=== PATIENT | female | born 1935 | race Two or more races ===

== ENCOUNTER 2017-10-01 10:29 | Observation (INO) | payer OTHER, MEDICARE ==
[~2017-10-01] VITALS: Ht 167.6 cm; Wt 81.6 kg
[~2017-10-01 10:29] MED LIST: ACET325T9 PO; AMLO5TAB2 PO; ASPI325T8 PO; ATOR20TA58 PO; CETI10TA22 PO; CLIN300C8 PO; DEXT15DR2 EACHEYE; DEXT15DR5 EACHEYE; DOCU240C13 PO; DONE10TA7 PO; ERGO500027 PO; FERR-26 PO; GABA-585 PO; GABA-586 PO; GLUC1VIA3 IM; GUAI600T6 PO; GUAI600T79 PO; HYDR-2758 PO; IBUP400T18 PO; INSU100V13 SQ; INSU100V5 SQ; LISI-334 PO; LORA10TA3 PO; MAG30ORA2 PO; MAG355OR32 PO; MAGN2400 PO; MAGN400T22 PO; MELA3TAB2 PO; METF10002 PO; METH29OI TP; MUPI22OI2 TP; OMEP20CA9 PO; PANT40TA3 PO; POLY15DR27 OU; POLY17PO3 PO; POLY255P PO; PROP15DR40 EACHEYE; QUET25TA5 PO; SERT100T8 PO; SERT50TA PO; TRAZ50TA15 PO; [UNRECOGNIZED DRUG - CODE] PO
[2017-10-01 11:10] LABS: BILIRUBIN,URINE NEG (NEG); CLARITY,URINE CLEAR; COLOR,URINE YELLOW; GLUCOSE,URINE 500 mg/dL (NEG)
[2017-10-01 11:11] LABS: BACTERIA,URINE 0 /HPF (0-FEW); NITRITE,URINE NEG (NEG); RBC,URINE 0 /HPF (0-2); SQUAMOUS EPITHELIAL CELL,UR OCC /LPF; UROBILINOGEN,URINE 0.2 mg/dL (0.2 mg/dL)
[2017-10-01 11:13] LABS: BASO % 0 % (0-3); EOS % 0 % (0-3); HEMATOCRIT 41.9 % (36.0-47.0); HEMOGLOBIN 13.6 g/dL (12.0-15.5); LYMPH # 1.3 x10^3/uL (1.0-4.8); LYMPH % 18 % (24-48); MEAN CORPUSCULAR HEMOGLOBIN 27 pg (25-35); MEAN CORPUSCULAR HGB CONC 32 g/dL (31-37); MEAN CORPUSCULAR VOLUME 83 fL (79-100); MONO # 0.5 x10^3/uL (0.0-1.1); MONO % 7 % (0-9); NEUT # 5.5 x10^3uL (1.8-7.7); NEUT % 75 % (31-73); PLATELET COUNT 244 x10^3/uL (140-400); RED BLOOD COUNT 5.04 x10^6/uL (3.50-5.40); WHITE BLOOD COUNT 7.4 x10^3/uL (4.0-11.0)
--- NOTE | 2017-10-01 11:19 | EKG ---
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
[2017-10-01 11:24] LABS: ALBUMIN 3.5 g/dL (3.4-5.0); ALBUMIN/GLOBULIN RATIO 0.9 (1.0-1.7); CALCIUM 8.8 mg/dL (8.5-10.1); CREATININE 1.1 mg/dL (0.6-1.0); GFR 47.8; MAGNESIUM 1.6 mg/dL (1.8-2.4); POTASSIUM 4.4 mmol/L (3.5-5.1); TOTAL BILIRUBIN 0.3 mg/dL (0.2-1.0); TOTAL PROTEIN 7.6 g/dL (6.4-8.2)
--- NOTE | 2017-10-01 11:25 | RAD ---
Head CT without contrast History:worsening aggression, mental status change Technique: Noncontrast CT imaging was acquired of the head. [facility] Compliance Statement: One or more of the following individualized dose reduction techniques were utilized for this examination: 1. Automated exposure control 2. Adjustment of the mA and/or kV according to patient size 3. Use of iterative reconstruction technique Comparison: None Findings: Ventricular size is within normal limits. There is mild supratentorial involutional change not unexpected for the patient's age.There is no significant mass-effect, midline shift, or abnormal extra-axial fluid collection. There is no evidence of acute parenchymal or extraaxial hemorrhage. The visualized paranasal sinuses and mastoid air cells are aerated. No significant osseous abnormality is identified. Impression: There is no evidence of an acute intracranial abnormality.
[2017-10-01] MEDS ORDERED: MAGNESIUM SULFATE 1GM 100 ML IV ONE (12:00)
[2017-10-01] MEDS ORDERED: ONDANSETRON PF 4 MG/2 ML VIAL. IV PRN (12:45)
[2017-10-01] MEDS ORDERED: MORPHINE SULFATE 2 MG/ML DISP.SYRIN. IV PRN (12:45)
[2017-10-01 13:35] VITALS: BP 166/77
[2017-10-01 15:00] VITALS: BP 159/88
[2017-10-01] MEDS ORDERED: MULT1TAB52 PO (15:40)
[2017-10-01] MEDS ORDERED: LORA1TAB PO (15:40)
[2017-10-01] MEDS ORDERED: LANS30CA PO (15:40)
[2017-10-01] MEDS ORDERED: LOPE2CAP PO (15:40)
[2017-10-01] MEDS ORDERED: HYDR-2758 PO (15:40)
[2017-10-01] MEDS ORDERED: TEMA15CA PO (15:40)
[2017-10-01] MEDS ORDERED: ACET500T68 PO (15:40)
[2017-10-01] MEDS ORDERED: OLAN5TAB9 PO (15:40)
[2017-10-01] MEDS ORDERED: CAPS42.510 TP (15:40)
[2017-10-01] MEDS ORDERED: GUAI600T79 PO (15:40)
[2017-10-01] MEDS ORDERED: LORA2DIS2 IM (15:47)
[2017-10-01] MEDS ORDERED: OLAN10TA9 IM (15:47)
--- NOTE | 2017-10-01 15:53 | PHYS DOC ---
Past History Past Medical History: Dementia, Depression, Diabetes, GERD, High Cholesterol, Hypertension, Other Past Surgical History: Coronary Bypass Surgery Alcohol Use: None Drug Use: None Adult General Chief Complaint Chief Complaint: PSYCH EVALUATION HPI HPI This is a pleasant 81-year-old female presenting to the emergency department for medical clearance prior to psychiatric admission. The patient has been more aggressive in the local alf. She is calm and cooperative with us today. She describes a sharp shooting abdominal pain that is mild nonradiating and is worse after eating. Otherwise she denies any symptoms. She denies chest pain shortness of breath fevers or chills. Review of systems is negative for vomiting diarrhea or blood in stool, numbness weakness or tingling. All other review of systems is negative unless otherwise noted in history of present illness. ED course: 81-year-old female presenting to the emergency department today for medical clearance. EKG obtained and unremarkable. Blood work shows low magnesium and high blood sugar. No evidence of acidosis. The remainder of her workup is unremarkable. On examination her abdomen is soft nontender nondistended without rebound tenderness or guarding. I discussed case with Dr. Mendez who accepted the patient for admission along with behavior health consultation. I placed a basic orders along with ordering IV magnesium for the patient. I have assessed this patient clinically and believe that their condition requires an admission to the hospital. After consulting the admitting physician about this case, they have asked that I admit this patient to their service as an inpatient based on the clinical presentation and my impression. Review of Systems Review of Systems SEE ABOVE. Current Medications Current Medications Current Medications Medications (Trade) Dose Ordered Sig/Hugh Start Time Stop Time Status Last Admin Dose Admin Magnesium Sulfate/ Dextrose 100 ml @ 20 mls/hr 1X ONCE 10/01/17 12:00 10/01/17 16:59 10/01/17 12:13 20 MLS/HR Morphine Sulfate (Morphine 2mg Syringe) 2 mg PRN Q2HR PRN 10/01/17 12:45 10/02/17 12:44 Ondansetron HCl (Zofran) 4 mg PRN Q4HRS PRN 10/01/17 12:45 10/02/17 12:44 Sodium Chloride 1,000 ml @ 90 mls/hr Q11H7M 10/01/17 12:43 10/02/17 00:42 Allergies Allergies Allergies Coded Allergies Type Severity Reaction Last Updated Verified hydrochlorothiazide Allergy Intermediate 08/13/15 Yes Physical Exam Physical Exam SEE ABOVE Constitutional: Well developed, well nourished, no acute distress, non-toxic appearance. [] HENT: Normocephalic, atraumatic, bilateral external ears normal, oropharynx moist, no oral exudates, nose normal. [] Eyes: PERRLA, EOMI, conjunctiva normal, no discharge. [] Neck: Normal range of motion, no tenderness, supple, no stridor. [] Cardiovascular:Heart rate regular rhythm, no murmur [] Lungs & Thorax: Bilateral breath sounds clear to auscultation [] Abdomen: Bowel sounds normal, soft, no tenderness, no masses, no pulsatile masses. [] Skin: Warm, dry, no erythema, no rash. [] Back: No tenderness, no CVA tenderness. [] Extremities: No tenderness, no cyanosis, no clubbing, ROM intact, no edema. [] Neurologic: Alert and oriented X 3, normal motor function, normal sensory function, no focal deficits noted. [] Psychologic: Affect normal, judgement normal, mood normal. [] Current Patient Data Vital Signs Vital Signs Date Time Temp Pulse Resp B/P (MAP) Pulse Ox O2 Delivery O2 Flow Rate FiO2 10/01/17 15:00 97.8 95 20 159/88 (111) 95 Room Air Lab Results Laboratory Tests Test 10/01/17 10:49 10/01/17 11:02 Urine Collection Type Void Urine Color Yellow Urine Clarity Clear Urine pH 5.5 Urine Specific [place] <=1.005 Urine Protein 30 mg/dl (NEG-TRACE) Urine Glucose (UA) 500 mg/dL (NEG) Urine Ketones (Stick) Neg mg/dL (NEG) Urine Blood Trace (NEG) Urine Nitrite Neg (NEG) Urine Bilirubin Neg (NEG) Urine Urobilinogen Dipstick 0.2 mg/dL (0.2 mg/dL) Urine Leukocyte Esterase Neg (NEG) Urine RBC 0 /HPF (0-2) Urine WBC 1-4 /HPF (0-4) Urine Squamous Epithelial Cells Occ /LPF Urine Bacteria 0 /HPF (0-FEW) White Blood Count 7.4 x10^3/uL (4.0-11.0) Red Blood Count 5.04 x10^6/uL (3.50-5.40) Hemoglobin 13.6 g/dL (12.0-15.5) Hematocrit 41.9 % (36.0-47.0) Mean Corpuscular Volume 83 fL (79-100) Mean Corpuscular Hemoglobin 27 pg (25-35) Mean Corpuscular Hemoglobin Concent 32 g/dL (31-37) Red Cell Distribution Width 14.0 % (11.5-14.5) Platelet Count 244 x10^3/uL (140-400) Neutrophils (%) (Auto) 75 % (31-73) H Lymphocytes (%) (Auto) 18 % (24-48) L Monocytes (%) (Auto) 7 % (0-9) Eosinophils (%) (Auto) 0 % (0-3) Basophils (%) (Auto) 0 % (0-3) Neutrophils # (Auto) 5.5 x10^3uL (1.8-7.7) Lymphocytes # (Auto) 1.3 x10^3/uL (1.0-4.8) Monocytes # (Auto) 0.5 x10^3/uL (0.0-1.1) Eosinophils # (Auto) 0.0 x10^3/uL (0.0-0.7) Basophils # (Auto) 0.0 x10^3/uL (0.0-0.2) Sodium Level 136 mmol/L (136-145) Potassium Level 4.4 mmol/L (3.5-5.1) Chloride Level 99 mmol/L (98-107) Carbon Dioxide Level 26 mmol/L (21-32) Anion Gap 11 (6-14) Blood Urea Nitrogen 17 mg/dL (7-20) Creatinine 1.1 mg/dL (0.6-1.0) H Estimated GFR (Cockcroft-Gault) 47.8 BUN/Creatinine Ratio 15 (6-20) Glucose Level 468 mg/dL (70-99) H Calcium Level 8.8 mg/dL (8.5-10.1) Magnesium Level 1.6 mg/dL (1.8-2.4) L Total Bilirubin 0.3 mg/dL (0.2-1.0) Aspartate Amino Transferase (AST) 26 U/L (15-37) Alanine Aminotransferase (ALT) 42 U/L (14-59) Alkaline Phosphatase 108 U/L (46-116) Total Protein 7.6 g/dL (6.4-8.2) Albumin 3.5 g/dL (3.4-5.0) Albumin/Globulin Ratio 0.9 (1.0-1.7) L EKG EKG [] Radiology/Procedures Radiology/Procedures [] Course & Med Decision Making Course & Med Decision Making Pertinent Labs and Imaging studies reviewed. (See chart for details) [] Dragon Disclaimer Dragon Disclaimer This electronic medical record was generated, in whole or in part, using a voice recognition dictation system. Departure Departure: Impression: Primary Impression: Hyperglycemia Additional Impression: Hypomagnesemia Disposition: ADMITTED INPATIENT Admitting Physician: Teresa Mendez Condition: STABLE Problem Qualifiers PHIL MORALES MD Oct 01, 2017 15:53
[2017-10-01] MEDS ORDERED: POLYVINYL ALCOHOL 1.4% OPHTH SOLUTION 15ML BOTTLE. OU PRN (16:15)
[2017-10-01] MEDS ORDERED: TEMAZEPAM 15 MG CAPSULE PO PRN (16:15)
[2017-10-01] MEDS ORDERED: ACETAMINOPHEN 500 MG TABLET PO PRN (16:15)
[2017-10-01] MEDS ORDERED: OLANZapine 5 MG TABLET PO PRN (16:15)
[2017-10-01] MEDS ORDERED: HYDROcodone/APAP 5/325MG 1 TAB TABLET PO PRN (16:15)
[2017-10-01] MEDS ORDERED: DEXTROSE 50% 25 GM / 50ML DISP.SYRIN. IV PRN (16:15)
[2017-10-01] MEDS ORDERED: NON FORMULARY ITEM (Propylene Glycol/Peg 400 (Systane 0.3-0.4% Eye Drops) 1 DROP) EACHEYE PRN (16:15)
[2017-10-01] MEDS ORDERED: LORazepam 1 MG TABLET PO PRN (16:15)
[2017-10-01] MEDS ORDERED: MAG HYDROX/AL HYDROX/SIMETH 30 ML ORAL.SUSP PO PRN (16:15)
[2017-10-01] MEDS ORDERED: LOPERAMIDE 2 MG CAPSULE PO PRN (16:15)
[2017-10-01] MEDS ORDERED: LORazepam 2 MG/ML VIAL IM PRN (16:30)
[2017-10-01] MEDS ORDERED: MAGNESIUM HYDROXIDE 2,400 MG/30 ML ORAL.SUSP. PO PRN (16:30)
[2017-10-01] MEDS: IV NORMAL SALINE 1,000ML 1,000 ML IV SCH ×2 (17:12→23:50)
[2017-10-01] MEDS: INSULIN ASPART 300 UNITS/3 ML INSULN.PEN SQ SCH ×2 (17:17→21:41)
[2017-10-01 19:13] VITALS: BP 183/84
[2017-10-01] MEDS ORDERED: INSULIN DETEMIR 300 UNITS/3 ML INSULN.PEN. SQ SCH (21:00)
[2017-10-01] MEDS ORDERED: CAPSAICIN 0.025% TOPICAL CREAM 60GM TUBE. TP PRN (21:00)
[2017-10-01 23:20] VITALS: BP 171/87
[2017-10-01 23:34] VITALS: BP 181/87
[2017-10-02] MEDS: IV NORMAL SALINE 1,000ML 1,000 ML IV SCH (02:46)
[2017-10-02 06:06] LABS: CALCIUM 8.4 mg/dL (8.5-10.1); CREATININE 0.6 mg/dL (0.6-1.0); GFR 96.2; POTASSIUM 4.2 mmol/L (3.5-5.1)
[2017-10-02 06:10] VITALS: BP 143/81
[2017-10-02] MEDS: INSULIN ASPART 300 UNITS/3 ML INSULN.PEN SQ SCH ×2 (08:59→12:21)
[2017-10-02] MEDS ORDERED: MAGNESIUM OXIDE 400 MG TABLET PO SCH (09:00)
[2017-10-02] MEDS ORDERED: ASPIRIN 325 MG TABLET PO SCH (09:00)
[2017-10-02] MEDS ORDERED: PANTOPRAZOLE 40 MG TABLET. PO SCH (09:00)
[2017-10-02] MEDS ORDERED: MULTIVITAMIN with MINERAL TABLET. PO SCH (09:00)
[2017-10-02 10:41] VITALS: BP 112/70
[2017-10-02 10:50] VITALS: BP 176/64
[2017-10-02 15:02] VITALS: BP 165/78
--- NOTE | 2017-10-02 16:44 | SSS ---
ADMIT DATE: 10/02/2017 HISTORY OF PRESENT ILLNESS: The patient is an 81-year-old female patient, a resident at [facility], who apparently was seen in the Emergency Room for medical clearance prior to psychiatric admission. The patient has been more aggressive in the local intermediate. She is calm and cooperative when she arrived to the Emergency Room. She apparently denied any complaint except mild abdominal pain. She was extensively investigated in the Emergency Room and all her lab work were mostly within acceptable range except that her blood sugar was extremely high at 468. She was also found to be mildly hypomagnesemic. I have had a lengthy discussion with the patient through an medical interpreter, lasted for almost 45 minutes and the patient really was very circumstantial, tangential, and was unable to give any particular complaint. I spoke to her daughter and her daughter stated that she has been very delusional, hallucinating, and very paranoid. She picks and choose her medications and all her claims that she has been maltreated in the intermediate ____ allow her to leave the facility. Her daughter states she can and she takes her out without any problem. In any case, she was admitted to [facility] and we basically started her on insulin sliding scale. She was in fact compliant here in the [facility] and we discussed with the intake team and the [facility] the plan is for her to go upstairs for inpatient psychiatric stabilization. PAST MEDICAL HISTORY: Significant for type 2 diabetes mellitus, hyperlipidemia, hypertension, heart failure, gastroesophageal reflux disease, chronic renal disease, coronary artery disease. ALLERGIES: She is apparently allergic to HYDROCHLOROTHIAZIDE. CODE STATUS: DNR. FAMILY HISTORY: Noncontributory. SOCIAL HISTORY: She is a intermediate resident. She does not smoke, drink alcohol, or use any recreational drugs. MEDICATIONS: She is currently on following medications: She is on Tylenol 650 mg every 6 hours, aspirin 325 mg once a day, capsaicin cream to apply topically q. 12 hourly, guaifenesin 600 mg twice a day, hydrocodone/APAP 5/325 one tablet every 6 hours. She is on Levemir insulin 6 units at bedtime, lansoprazole 30 mg capsules once a day, loperamide 2 mg as needed for diarrhea, lorazepam 1 mg every 4 hours, lorazepam 2 mg per 1 mL dispensing syringe intramuscular as needed every 4 hours. She is on Mylanta 30 mL every 4 hours as needed, milk of magnesia 30 mL p.o. daily p.r.n. for constipation. She is on magnesium oxide 400 mg daily, multivitamin 1 tablet once a day, olanzapine ____ mg every 6 hours, polyvinyl alcohol or Artificial Tears 1 drop to both eyes as needed every 12 hours, Systane 1 drop to each eye 4 times a day, temazepam 60 mg at bedtime. PHYSICAL EXAMINATION: GENERAL: On examining her, she looks well and was clearly in no apparent respiratory distress, pale, but no jaundice, cyanosis, or thyromegaly. No jugular venous distension. No limb edema. VITAL SIGNS: Her heart rate was 91, blood pressure was 186/86, temperature was 98, respiratory rate 20, and oxygen saturation was 94%. HEAD, EYES, EARS, NOSE, AND THROAT: Showed normocephalic, atraumatic. NECK: Supple. HEART: Showed normal first and second sound. No gallop, rub, or murmur. CHEST: Clear to auscultation. No crepitation or rhonchi. ABDOMEN: Distended, soft, nontender. No guarding or rigidity. No organomegaly. Hernial orifice intact. Bowel sounds normal. NEUROLOGIC: She was demented, but without any obvious lateralizing sign. All cranial nerves intact. EXTREMITIES: She moves her extremities without difficulty. She ambulates without assistance or assistive devices. LABORATORY DATA: Her white cell count was 7400, hemoglobin 13.6, hematocrit 41.9, MCV 83, and platelet count 244,000. Her serum sodium was 142, potassium 4.2, chloride 107, bicarbonate 29, anion gap of 6, BUN 13, creatinine 0.6, estimated GFR was 96 mL per minute. Her glucose 140, calcium was 8.4, magnesium was 1.7. Urinalysis was essentially unremarkable. The urine was yellow, clear with a pH of 5.5, specific gravity 1.005. There was a trace of protein, large amount of glucose, negative for ketones, trace of blood, negative for nitrites and leukocyte esterase, 0 rbc's, 1-4 wbc's, and no bacteria. She has had a CT scan of the head, which basically showed ventricular size is within normal limits. There is mild supratentorial involutional changes, not unexpected for the patient's age. There is no significant mass effect, midline shift or abnormal extraaxial fluid collection. There is no evidence of acute parenchymal or extraaxial hemorrhage. The visualized paranasal sinuses and mastoid air cells are aerated. No significant osseous abnormalities identified. IMPRESSION: In summary, this is an 81-year-old female patient, a resident at [facility] who was brought to the Emergency Room apparently very aggressive and noncompliant with medication. Her blood sugar was initially found to be high and had low magnesium. She admitted to [facility] for medical stabilization. We will start her on insulin sliding scale. Apparently, the patient has been very delusional, hallucinating, paranoid. She is also markedly circumferential. I spent almost 45 minutes through an medical interpreter to find exactly her complaint and then I spoke to her daughter and all her complaints against intermediate are unsubstantiated. The patient will be transferred to [facility] for inpatient psychiatric stabilization. MAYA HANSON MD DR: HAKEEM/simone JOB#: [id number] / [id number]
[2017-10-02] MEDS ORDERED: SERT25TA PO (17:07)
[2017-10-02] MEDS ORDERED: GABA-586 PO (17:07)
[2017-10-02] MEDS ORDERED: METF10002 PO (17:07)
[2017-10-02] MEDS ORDERED: OMEP20TA8 PO (17:07)
[2017-10-02] MEDS ORDERED: PALI3TAB2 PO (17:07)
[2017-10-02] MEDS ORDERED: DONE10TA61 PO (17:07)
[2017-10-02] MEDS ORDERED: TRAZ50TA15 PO (17:07)
[2017-10-02] MEDS ORDERED: ATOR20TA58 PO (17:07)
[2017-10-02] MEDS ORDERED: AMLO10TA4 PO (17:07)
[2017-10-02] MEDS ORDERED: GLIM2TAB2 PO (17:07)
[2017-10-03 23:08] LABS: HEMOGLOBIN A1C 10.4 % (4.8-5.6)
== END 2017-10-02 16:00 ==
LOC: ER 10:29 → INTOOBSV 12:46 → 1 SOUTH 12:46
PROVIDERS: ADMIT Internal Medicine; ATTEND Internal Medicine
DX: E11.65 Type 2 diabetes mellitus with hyperglycemia (principal); I13.0 Hypertensive heart and chronic kidney disease with heart failure and stage 1 through stage 4 chronic kidney disease, or unspecified chronic kidney disease; E11.22 Type 2 diabetes mellitus with diabetic chronic kidney disease; N18.9 Chronic kidney disease, unspecified; I50.30 Unspecified diastolic (congestive) heart failure; E78.5 Hyperlipidemia, unspecified; K21.9 Gastro-esophageal reflux disease without esophagitis; I25.10 Atherosclerotic heart disease of native coronary artery without angina pectoris
CPT/HCPCS: 36415; 70450; 80048; 80053; 81001; 82947; 83036; 83735; 85025; 87641; 93005; 96361; 96365; 96366; 96372; 99285; G0378; G0379; J1815; J3475; J7030

== ENCOUNTER 2017-10-02 15:49 | Inpatient (IN) | payer OTHER, MEDICARE ==
[~2017-10-02] VITALS: Ht 160 cm; Wt 82.7 kg
[~2017-10-02 15:49] MED LIST changes: +ACET500T68 PO; +CAPS42.510 TP; +LANS30CA PO; +LOPE2CAP PO; +LORA1TAB PO; +LORA2DIS2 IM; +MULT1TAB52 PO; +OLAN10TA9 IM; +OLAN5TAB9 PO; +TEMA15CA PO
[2017-10-02] MEDS ORDERED: OLANZapine 5 MG TABLET PO PRN (16:30)
[2017-10-02] MEDS ORDERED: LORazepam 1 MG TABLET PO PRN (16:30)
[2017-10-02] MEDS ORDERED: HYDROcodone/APAP 5/325MG 1 TAB TABLET PO PRN (16:30)
[2017-10-02] MEDS ORDERED: NON FORMULARY ITEM (Propylene Glycol/Peg 400 (Systane 0.3-0.4% Eye Drops) 1 DROP) EACHEYE PRN (16:30)
[2017-10-02] MEDS ORDERED: POLYVINYL ALCOHOL 1.4% OPHTH SOLUTION 15ML BOTTLE. OU PRN (16:30)
[2017-10-02] MEDS ORDERED: ACETAMINOPHEN 325 MG TABLET PO PRN (16:30)
[2017-10-02] MEDS ORDERED: LOPERAMIDE 2 MG CAPSULE PO PRN (16:30)
[2017-10-02] MEDS ORDERED: TEMAZEPAM 15 MG CAPSULE PO PRN (16:30)
[2017-10-02] MEDS ORDERED: MAG HYDROX/AL HYDROX/SIMETH 30 ML ORAL.SUSP PO PRN ×2 (16:30)
[2017-10-02] MEDS ORDERED: METHYL SALICYLATE/MENTHOL TOPICAL OINTMENT 29GM TUBE. TP PRN (16:30)
[2017-10-02] MEDS ORDERED: MAGNESIUM HYDROXIDE 2,400 MG/30 ML ORAL.SUSP. PO PRN ×2 (16:30→17:00)
[2017-10-02] MEDS ORDERED: ACETAMINOPHEN 500 MG TABLET PO PRN (16:30)
[2017-10-02] MEDS ORDERED: DEXTROSE 50% 25 GM / 50ML DISP.SYRIN. IV PRN (17:00)
[2017-10-02] MEDS ORDERED: NON FORMULARY ITEM (Omeprazole 20 MG) PO PRN (17:00)
[2017-10-02] MEDS ORDERED: DONE10TA61 PO (17:07)
[2017-10-02] MEDS ORDERED: OMEP20TA8 PO (17:07)
[2017-10-02] MEDS ORDERED: GLIM2TAB2 PO (17:07)
[2017-10-02] MEDS ORDERED: METF10002 PO (17:07)
[2017-10-02] MEDS ORDERED: ATOR20TA58 PO (17:07)
[2017-10-02] MEDS ORDERED: SERT25TA PO (17:07)
[2017-10-02] MEDS ORDERED: TRAZ50TA15 PO (17:07)
[2017-10-02] MEDS ORDERED: AMLO10TA4 PO (17:07)
[2017-10-02] MEDS ORDERED: PALI3TAB2 PO (17:07)
[2017-10-02] MEDS ORDERED: GABA-586 PO (17:07)
[2017-10-02 17:12] VITALS: BP 185/75
[2017-10-02] MEDS: DONEPEZIL HCL 10 MG TABLET PO SCH ×2 (19:51→21:00)
[2017-10-02] MEDS: risperiDONE 1 MG TABLET. PO SCH ×2 (19:51→21:00)
[2017-10-02] MEDS: GABAPENTIN 300 MG CAPSULE. PO SCH ×2 (19:51→21:00)
[2017-10-02] MEDS: ATORVASTATIN CALCIUM 20 MG TABLET PO SCH ×2 (19:52→21:00)
[2017-10-02] MEDS: traZODone 50 MG TABLET. PO SCH (19:52)
[2017-10-02] MEDS ORDERED: CAPSAICIN 0.025% TOPICAL CREAM 60GM TUBE. TP PRN (21:00)
[2017-10-02] MEDS ORDERED: INSULIN DETEMIR 300 UNITS/3 ML INSULN.PEN. SQ SCH (21:00)
[2017-10-02] MEDS ORDERED: INSULIN ASPART 300 UNITS/3 ML INSULN.PEN SQ SCH (21:00)
[2017-10-03 00:11] LABS: T3 TOTAL 117 ng/dL (71-180); THYROXINE 5.3 ug/dL (4.5-12.0)
[2017-10-03] MEDS: GABAPENTIN 300 MG CAPSULE. PO SCH ×3 (07:55→21:00)
[2017-10-03] MEDS: risperiDONE 1 MG TABLET. PO SCH ×3 (07:55→21:00)
[2017-10-03] MEDS: amLODIPine BESYLATE 10 MG TABLET PO SCH (07:57)
[2017-10-03] MEDS: GLIMEPIRIDE 2 MG TABLET PO SCH (07:57)
[2017-10-03] MEDS: ASPIRIN 325 MG TABLET PO SCH (07:57)
[2017-10-03] MEDS: MAGNESIUM OXIDE 400 MG TABLET PO SCH (07:59)
[2017-10-03] MEDS: PANTOPRAZOLE 40 MG TABLET. PO SCH (07:59)
[2017-10-03] MEDS: SERTRALINE 25 MG TABLET. PO SCH (07:59)
[2017-10-03] MEDS: MULTIVITAMIN with MINERAL TABLET. PO SCH (07:59)
[2017-10-03] MEDS: INSULIN ASPART 300 UNITS/3 ML INSULN.PEN SQ SCH ×2 (08:06→11:30)
[2017-10-03 10:34] LABS: THYROID STIM HORMONE (TSH) 0.402 uIU/mL (0.358-3.740)
[2017-10-03] MEDS ORDERED: INSULIN ASPART 300 UNITS/3 ML INSULN.PEN SQ ONE (12:30)
[2017-10-03 16:48] VITALS: BP 144/76
[2017-10-03] MEDS: metFORMIN 500 MG TABLET PO SCH (18:12)
[2017-10-03] MEDS: traZODone 50 MG TABLET. PO SCH (20:00)
[2017-10-03] MEDS: DONEPEZIL HCL 10 MG TABLET PO SCH ×2 (20:00→21:00)
[2017-10-03] MEDS: ATORVASTATIN CALCIUM 20 MG TABLET PO SCH ×2 (20:00→21:00)
--- NOTE | 2017-10-03 21:06 | PDOC ---
Exam Note: Anton Note: Please also refer to the separate dictated note~for this date of service dictated separately.~Patient seen individually. Discussed the patient with Nursing staff reviewed the chart.~Reviewed interim history and current functioning. Reviewed vital signs,~Labs/ Radiology~and current medications noted below. Continue current treatment with the changes noted in the dictated addendum note Assessment: Vital Signs: Vital Signs Date Time Temp Pulse Resp B/P (MAP) Pulse Ox O2 Delivery O2 Flow Rate FiO2 10/03/17 16:48 97.5 83 16 144/76 (98) 93 I&O Intake and Output 10/03/17 07:00 Intake Total 600 ml Balance 600 ml Intake Oral 600 ml Labs: Laboratory Tests Test 10/03/17 08:03 10/03/17 11:42 10/03/17 16:39 10/03/17 19:06 Glucose (Fingerstick) 355 mg/dL (70-99) H 444 mg/dL (70-99) H 358 mg/dL (70-99) H 377 mg/dL (70-99) H Current Medications: Meds: Current Medications Acetaminophen (Tylenol) 650 mg PRN Q6HRS PRN PO PAIN / TEMP; Start 10/02/17 at 16:30; Status Cancel Multi-Ingredient Ointment (Analgesic [place]) 1 kiersten PRN QID PRN TP MUSCLE PAIN; Start 10/02/17 at 16:30 Al Hydroxide/Mg Hydroxide (Mylanta Plus Xs) 15 ml PRN AFTMEALHC PRN PO DYSPEPSIA; Start 10/02/17 at 16:30; Status Cancel Magnesium Hydroxide (Milk Of Magnesia) 2,400 mg PRN QHS PRN PO CONSTIPATION; Start 10/02/17 at 16:30; Status Cancel Acetaminophen (Tylenol) 500 mg PRN Q6HRS PRN PO PAIN / TEMP; Start 10/02/17 at 16:30 Aspirin (James Aspirin) 325 mg DAILY PO Last administered on 10/03/17t 07:57; Start 10/03/17 at 09:00 Guaifenesin (Mucinex Er) 600 mg PRN BID PRN PO COUGH; Start 10/02/17 at 16:30 Acetaminophen/ Hydrocodone Bitart (Lortab 5/325) 1 tab PRN Q6HRS PRN PO PAIN Last administered on 10/03/17 07:57; Start 10/02/17 at 16:30 Loperamide HCl (Imodium) 2 mg PRN Q1HR PRN PO DIARRHEA; Start 10/02/17 at 16: 30 Lorazepam (Ativan) 1 mg PRN Q4HRS PRN PO AGITATION; Start 10/02/17 at 16:30 Al Hydroxide/Mg Hydroxide (Mylanta Plus Xs) 20 ml PRN Q4HRS PRN PO DYSPEPSIA; Start 10/02/17 at 16:30 Magnesium Oxide (Magnesium Oxide) 400 mg DAILY PO Last administered on 07:59; Start 10/03/17 at 09:00 Olanzapine (ZyPREXA) 5 mg PRN Q6HRS PRN PO AGITATION; Start 10/02/17 at 16:30 Artificial Tears (Artificial Tears) 1 drop PRN Q12HR PRN OU DRY EYE; Start at 16:30 Temazepam (Restoril) 15 mg PRN QHS PRN PO INSOMNIA; Start 10/02/17 at 16:30 Capsaicin (Zostrix) 1 kiersten PRN Q12HR PRN TP PAIN; Start 10/02/17 at 21:00 Pantoprazole Sodium (Protonix) 40 mg DAILY PO Last administered on 10/03/17 07:59; Start 10/03/17 at 09:00 Magnesium Hydroxide (Milk Of Magnesia) 800 mg PRN QHS PRN PO CONSTIPATION; Start 10/02/17 at 17:00 Multivitamins/ Calcium (Thera-M Plus) 1 tab DAILY PO Last administered on 10/03 07:59; Start 10/03/17 at 09:00 Non-Formulary Medication 1 drop PRN QID PRN EACHEYE DRY EYE; Start 10/02/17 at 16:30; Status UNV Insulin Aspart (NovoLOG) 0-9 UNITS QIDACHS SQ ; Start 10/02/17 at 21:00; Stop 10/03/17 at 00:14; Status DC Dextrose 12.5 gm PRN Q15MIN PRN IV SEE COMMENTS; Start 10/02/17 at 17:00 Amlodipine Besylate (Norvasc) 10 mg DAILY PO Last administered on 10/03/17 07 :57; Start 10/03/17 at 09:00 Atorvastatin Calcium (Lipitor) 20 mg QHS PO Last administered on 10/03/17 20: 00; Start 10/02/17 at 21:00 Donepezil HCl (Aricept) 10 mg QHS PO Last administered on 10/03/17 20:00; Start 10/02/17 at 21:00 Gabapentin (Neurontin) 300 mg BID PO Last administered on 10/03/17 20:00; Start 10/02/17 at 21:00 Glimepiride (Amaryl) 2 mg DAILYWBKFT PO Last administered on 10/03/17 07:57; Start 10/03/17 at 08:00 Sertraline HCl (Zoloft) 75 mg DAILY PO Last administered on 10/03/17 07:59; Start 10/03/17 at 09:00 Trazodone HCl (Desyrel) 25 mg QHS PO Last administered on 10/03/17 20:00; Start 10/02/17 at 21:00 Metformin HCl (Glucophage) 1,000 mg BIDWMEALS PO Last administered on 18:12; Start 10/03/17 at 17:30 Non-Formulary Medication 20 mg DAILY PRN PO GERD; Start 10/02/17 at 17:00; Status UNV Risperidone (RisperDAL) 1 mg BID PO Last administered on 10/03/17 20:00; Start 10/02/17 at 21:00 Insulin Detemir (Levemir) 40 units QHS SQ Last administered on 10/02/17 21:09 ; Start 10/02/17 at 21:00; Stop 10/03/17 at 16:42; Status DC Insulin Aspart (NovoLOG) 0-9 UNITS TIDAC SQ Last administered on 10/03/17 08: 06; Start 10/03/17 at 07:30; Stop 10/03/17 at 17:07; Status DC Insulin Aspart (NovoLOG) 12 units 1X ONCE SQ Last administered on 10/03/17 14:04; Start 10/03/17 at 12:30; Stop 10/03/17 at 12:31; Status DC Insulin Detemir (Levemir) 40 units BID SQ ; Start 10/03/17 at 21:00 Insulin Aspart (NovoLOG) 10 units TIDAC SQ ; Start 10/04/17 at 07:30 Active Scripts Active Reported Trazodone Hcl 50 Mg Tablet 25 Mg PO QHS Invega (Paliperidone) 3 Mg Tab.er.24 3 Mg PO QHS Aricept (Donepezil Hcl) 10 Mg Tablet 10 Mg PO QHS Atorvastatin Calcium 20 Mg Tablet 20 Mg PO QHS Metformin Hcl 1,000 Mg Tablet 1,000 Mg PO BID94 Gabapentin 300 Mg Capsule 300 Mg PO BID Omeprazole 20 Mg Tablet.dr 20 Mg PO DAILY PRN Glimepiride 2 Mg Tablet 2 Mg PO DAILY Norvasc (Amlodipine Besylate) 10 Mg Tablet 10 Mg PO DAILY Zoloft (Sertraline Hcl) 25 Mg Tablet 75 Mg PO DAILY Temazepam 15 Mg Capsule 1 Cap PO QHS PRN Olanzapine 5 Mg Tablet 1 Tab PO PRN Q6HRS PRN Lorazepam 1 Mg Tablet 1 Mg PO PRN Q4HRS PRN Loperamide (Loperamide Hcl) 2 Mg Capsule 2 Mg PO PRN Q1HR PRN Capsaicin 42.5 Gm Cream..g. 1 Kiersten TP PRN Q12HR PRN Hydrocodone-Apap 5-325 (Hydrocodone Bit/Acetaminophen) 1 Each Tablet 1 Tab PO PRN Q6HRS Multivitamins (Multivitamin) 1 Each Tablet 1 Tab PO DAILY Guaifenesin 600 Mg Tablet.er 600 Mg PO PRN BID PRN Lansoprazole 30 Mg Capsule.dr 1 Cap PO DAILY Acetaminophen 500 Mg Tablet 1 Tab PO Q6HRS PRN Mag-Oxide (Magnesium Oxide) 400 Mg Tablet 400 Mg PO DAILY Systane 0.3-0.4% Eye Drops (Propylene Glycol/Peg 400) 15 Ml Drops 1 Drop EACHEYE PRN QID PRN Levemir (Insulin Detemir) 100 Unit/1 Ml Vial 40 Unit SQ HS Artificial Tears (Polyvinyl Alcohol) 15 Ml Drops 1 Drop OU PRN Q12HR PRN Milk Of Magnesia (Magnesium Hydroxide) 2,400 Mg/10 Ml Oral.susp 10 Ml PO PRN QHS PRN Mag-Al Plus Xs Suspension (Mag Hydrox/Al Hydrox/Simeth) 30 Ml Oral.susp 20 Ml PO PRN Q4HRS PRN Aspirin 325 Mg Tablet 325 Mg PO DAILY Give with food. Not to exceed 8 tablets in 24 hours. I have reviewed the current psychotropics carefully including drug interactions. Risk benefit ratio favors no change other than as noted in my dictated progress note. ALEX SINGLETARY MD Oct 03, 2017 21:06
[2017-10-03] MEDS: INSULIN DETEMIR 300 UNITS/3 ML INSULN.PEN. SQ SCH (21:52)
--- NOTE | 2017-10-04 00:47 | PN ---
DATE: 10/02/2017 SUBJECTIVE: The patient is an 81-year-old female patient, a resident at [facility], who apparently was seen in the Emergency Room for medical clearance and apparently, was found to have marked hyperglycemia and also mild hypomagnesemia and was admitted to [address] [place] [address] for stabilization. As she speaks only Green[place]ic, I have used an worm packer and I spent about 45 minutes trying to exactly find what the problem was, and the patient was very circumstantial, tangential, was unable to give me any particular complaint. I spoke to her daughter and who stated that she has been very delusional, hallucinating, and very paranoid. She picks and chews her medication and all her complaints that she has been maltreated at the shelter, are not substantiated according to her daughter. She has been taking her out regularly without any problem and basically, the patient was [facility] for [facility]. PAST MEDICAL HISTORY: Significant for type 2 diabetes mellitus, hyperlipidemia, hypertension, gastroesophageal reflux disease, chronic renal disease, coronary artery disease, and heart failure. ALLERGIES: She is allergic to HYDROCHLOROTHIAZIDE. FAMILY HISTORY: Noncontributory. SOCIAL HISTORY: She is a shelter resident. She does not smoke, drink alcohol or use recreational drugs. MEDICATIONS: She is currently on following medications: She is on Tylenol 500 mg every 6 hours, amlodipine 10 mg once a day, aspirin 325 mg once a day, atorvastatin calcium 20 mg at bedtime, capsaicin cream applied topically twice a day, Aricept 10 mg at bedtime, gabapentin 300 mg p.o. b.i.d., glimepiride 2 mg daily, guaifenesin 600 mg twice a day, hydrocodone/APAP 5/325 one tablet every 6 hours. She is on detemir insulin 40 units at bedtime, lansoprazole 30 mg once a day, loperamide 2 mg every 2 hours as needed for diarrhea, lorazepam 1 mg every 4 hours, Maalox 20 mL every 4 hours as needed, milk of magnesia 30 mL p.o. daily p.r.n. for constipation, mag oxide 400 mg once a day, metformin 1000 mg twice a day, multivitamin 1 tablet once a day, olanzapine 5 mg every 6 hours, omeprazole 20 mg daily, paliperidone 3 mg p.o. at bedtime, polyvinyl alcohol 1 drop to both eyes twice a day, Systane eyedrops 1 drop to each eye 4 times a day, sertraline 75 mg once a day, and temazepam 15 mg at bedtime, and trazodone 25 mg at bedtime. PHYSICAL EXAMINATION: GENERAL: On examining her, she looked well and was clearly in no apparent distress, slightly pale, but no jaundiced, cyanosis, or thyromegaly. No jugular venous distension. No limb edema. VITAL SIGNS: Her heart rate was 79, blood pressure 165/78, temperature was 98, respiratory rate was 20, and oxygen saturation was 91% on room air. The rest of clinical examination is unremarkable. The patient ambulates without assistance or assistive devices. LABORATORY DATA: As of yesterday showed a white cell count of 7400, hemoglobin 13.6, hematocrit 41, MCV 83, and platelet count 244,000. Her chemistry showed serum sodium of 142, potassium 4.2, chloride 107, bicarbonate 29, anion gap of 6, BUN 13, creatinine 0.6, estimated GFR was 96 mL per minute. Her glucose 140, calcium was 8.4. Her magnesium was 1.7. PLAN: My plan is to basically given that she has persistent hyperglycemia. I will double her Levemir to 40 units twice a day. I will start her on a scheduled insulin 3 times a day before meals. I will discontinue the sliding scale and decide further management accordingly. Thank you, Dr. Teran for allowing me to participate in the care of this patient. MAYA HANSON MD DR: HAKEEM/simone JOB#: [id number] / [id number]
[2017-10-04 06:25] VITALS: BP 170/78
[2017-10-04] MEDS: GABAPENTIN 300 MG CAPSULE. PO SCH ×3 (08:24→21:04)
[2017-10-04] MEDS: SERTRALINE 25 MG TABLET. PO SCH (08:24)
[2017-10-04] MEDS: metFORMIN 500 MG TABLET PO SCH ×2 (08:24→17:00)
[2017-10-04] MEDS: GLIMEPIRIDE 2 MG TABLET PO SCH (08:24)
[2017-10-04] MEDS: MAGNESIUM OXIDE 400 MG TABLET PO SCH (08:24)
[2017-10-04] MEDS: ASPIRIN 325 MG TABLET PO SCH (08:24)
[2017-10-04] MEDS: MULTIVITAMIN with MINERAL TABLET. PO SCH (08:24)
[2017-10-04] MEDS: amLODIPine BESYLATE 10 MG TABLET PO SCH (08:24)
[2017-10-04] MEDS: PANTOPRAZOLE 40 MG TABLET. PO SCH (08:24)
[2017-10-04] MEDS: INSULIN ASPART 300 UNITS/3 ML INSULN.PEN SQ SCH ×3 (08:27→16:30)
[2017-10-04] MEDS: INSULIN DETEMIR 300 UNITS/3 ML INSULN.PEN. SQ SCH ×2 (08:28→22:08)
[2017-10-04 08:47] LABS: BASO % 0 % (0-3); EOS # 0.1 x10^3/uL (0.0-0.7); EOS % 1 % (0-3); HEMATOCRIT 41.1 % (36.0-47.0); HEMOGLOBIN 13.4 g/dL (12.0-15.5); LYMPH # 2.1 x10^3/uL (1.0-4.8); LYMPH % 30 % (24-48); MEAN CORPUSCULAR HEMOGLOBIN 27 pg (25-35); MEAN CORPUSCULAR HGB CONC 33 g/dL (31-37); MEAN CORPUSCULAR VOLUME 83 fL (79-100); MONO # 0.6 x10^3/uL (0.0-1.1); MONO % 9 % (0-9); NEUT # 4.2 x10^3uL (1.8-7.7); NEUT % 60 % (31-73); PLATELET COUNT 238 x10^3/uL (140-400); RED BLOOD COUNT 4.95 x10^6/uL (3.50-5.40); RED CELL DISTRIBUTION WIDTH 14.2 % (11.5-14.5); WHITE BLOOD COUNT 7.1 x10^3/uL (4.0-11.0)
[2017-10-04] MEDS ORDERED: risperiDONE ORAL 1 MG/ML 30ml BOTTLE. PO SCH (09:00)
[2017-10-04 09:05] LABS: ALBUMIN 3.4 g/dL (3.4-5.0); ALBUMIN/GLOBULIN RATIO 0.8 (1.0-1.7); CALCIUM 8.9 mg/dL (8.5-10.1); CREATININE 0.9 mg/dL (0.6-1.0); GFR 60.2; POTASSIUM 4.4 mmol/L (3.5-5.1); TOTAL BILIRUBIN 0.4 mg/dL (0.2-1.0); TOTAL PROTEIN 7.5 g/dL (6.4-8.2)
--- NOTE | 2017-10-04 09:45 | HP ---
ADMIT DATE: 10/02/2017 SUBJECTIVE: The patient is an 81-year-old female patient, a resident at [facility], who apparently was seen in the Emergency Room for medical clearance and apparently, was found to have marked hyperglycemia and also mild hypomagnesemia and was admitted to [address] [place] [address] for stabilization. As she speaks only Yi, I have used an tank setter helper and I spent about 45 minutes trying to exactly find what the problem was, and the patient was very circumstantial, tangential, was unable to give me any particular complaint. I spoke to her daughter and who stated that she has been very delusional, hallucinating, and very paranoid. She picks and chews her medication and all her complaints that she has been maltreated at the longterm, are not substantiated according to her daughter. She has been taking her out regularly without any problem and basically, the patient was [facility] stabilization. PAST MEDICAL HISTORY: Significant for type 2 diabetes mellitus, hyperlipidemia, hypertension, gastroesophageal reflux disease, chronic renal disease, coronary artery disease, and heart failure. ALLERGIES: She is allergic to HYDROCHLOROTHIAZIDE. FAMILY HISTORY: Noncontributory. SOCIAL HISTORY: She is a longterm resident. She does not smoke, drink alcohol or use recreational drugs. MEDICATIONS: She is currently on following medications: She is on Tylenol 500 mg every 6 hours, amlodipine 10 mg once a day, aspirin 325 mg once a day, atorvastatin calcium 20 mg at bedtime, capsaicin cream applied topically twice a day, Aricept 10 mg at bedtime, gabapentin 300 mg p.o. b.i.d., glimepiride 2 mg daily, guaifenesin 600 mg twice a day, hydrocodone/APAP 5/325 one tablet every 6 hours. She is on detemir insulin 40 units at bedtime, lansoprazole 30 mg once a day, loperamide 2 mg every 2 hours as needed for diarrhea, lorazepam 1 mg every 4 hours, Maalox 20 mL every 4 hours as needed, milk of magnesia 30 mL p.o. daily p.r.n. for constipation, mag oxide 400 mg once a day, metformin 1000 mg twice a day, multivitamin 1 tablet once a day, olanzapine 5 mg every 6 hours, omeprazole 20 mg daily, paliperidone 3 mg p.o. at bedtime, polyvinyl alcohol 1 drop to both eyes twice a day, Systane eyedrops 1 drop to each eye 4 times a day, sertraline 75 mg once a day, and temazepam 15 mg at bedtime, and trazodone 25 mg at bedtime. PHYSICAL EXAMINATION: GENERAL: On examining her, she looked well and was clearly in no apparent distress, slightly pale, but no jaundiced, cyanosis, or thyromegaly. No jugular venous distension. No limb edema. VITAL SIGNS: Her heart rate was 79, blood pressure 165/78, temperature was 98, respiratory rate was 20, and oxygen saturation was 91% on room air. The rest of clinical examination is unremarkable. The patient ambulates without assistance or assistive devices. LABORATORY DATA: As of yesterday showed a white cell count of 7400, hemoglobin 13.6, hematocrit 41, MCV 83, and platelet count 244,000. Her chemistry showed serum sodium of 142, potassium 4.2, chloride 107, bicarbonate 29, anion gap of 6, BUN 13, creatinine 0.6, estimated GFR was 96 mL per minute. Her glucose 140, calcium was 8.4. Her magnesium was 1.7. PLAN: My plan is to basically given that she has persistent hyperglycemia. I will double her Levemir to 40 units twice a day. I will start her on a scheduled insulin 3 times a day before meals. I will discontinue the sliding scale and decide further management accordingly. Thank you, Dr. Teran for allowing me to participate in the care of this patient. MAYA HANSON MD DR: HAKEEM/simone JOB#: [id number] / [id number]
--- NOTE | 2017-10-04 12:14 | HP ---
ADMIT DATE: 10/03/2017 PSYCHIATRIC ADMISSION HISTORY/EVALUATION Please refer to my initial note for details. This note covers elements not covered in my initial note. IDENTIFYING DATA: The patient is an 81-year-old female, who returns back to us from [address] [place] [address] after she was medically stabilized on account of her hypomagnesemia. She was initially referred from the [facility] on account of increasing tearfulness, agitated, being delusional, hallucinating, rapid circumstantial speech and thought processes, which were also tangential. At the senior living she had been refusing medications for about 2 months, throwing things at people, screaming, crying with increased aggression and combativeness resulting in this referral initially to us for psychiatric stabilization. CHIEF COMPLAINT: "You go ___." The patient was extremely agitated as I met with her evening of 10/03/2017. Rapid speech, speaking only in Samoan, but nursing staff indicate she has been reasonably oriented, psychotic, agitated, anxious, depressed and forgetful. HISTORY OF PRESENT ILLNESS: The patient has history of mild cognitive impairment versus cognitive disorder, unspecified with worsening symptoms of depression, delusions, mood swings. She has had sleep and appetite changes and behaviors at the senior living, have been significantly aberrant, unmanageable. She had mood swings and possible history of bipolar disorder. No active suicidal or homicidal ideation. PAST PSYCHIATRIC HISTORY: As noted above and the patient has been hospitalized here in the past for similar presentation. PAST MEDICAL HISTORY: Hypertension, diabetes mellitus, hypomagnesemia, stabilized. CODE STATUS: DNR. ALLERGIES: HYDROCHLOROTHIAZIDE. Accu-Cheks a.c. and at bedtime. Diet: Regular, ADA, takes her medications whole, ambulates up ad neyda. UA 10/01/2017 was negative. CURRENT PSYCHOTROPICS: Zoloft 75 mg a day, Aricept 10 mg at bedtime, trazodone 25 mg at bedtime, Restoril 15 mg at bedtime p.r.n., Ativan p.r.n., Zyprexa p.r.n. FAMILY HISTORY: Noncontributory. SOCIAL HISTORY: The patient resides at the [facility]. No alcohol or drug abuse, physical, sexual or elder abuse history is noted. Not known to be a perpetrator. MENTAL STATUS EXAMINATION: The patient was seen individually evening of 10/03/2017. She is hyperverbal, extremely rapid in her speech in Samoan, oriented to herself. Insight limited, judgment marginal, language function intact, attention span short. Short term memory is impaired. Her mood is better. She is oriented to place and situation. Insight poor, judgment impaired. No active suicidal or homicidal ideation. REVIEW OF SYSTEMS: No CV, , pulmonary, eye, ENT system symptoms on review. Reliability poor. IMPRESSION: Major depressive disorder, recurrent with psychotic features; anxiety disorder, unspecified; bipolar 1 disorder, mixed with psychotic features. Major neurocognitive disorder, Alzheimer, vascular with depression, delusion versus mild cognitive impairment; impulse control disorder, unspecified. Rest as above. PLAN: Admit to Geropsychiatry Unit at [facility]. Request Dr. Moser/Dr. Mendez to follow the patient medically. I will see the patient daily individually. Continue current psychotropics, increase Zoloft to 100 mg a day. Consider Depakote as a mood stabilizer. Review drug interactions. Risk/benefit ratio favors no further change. MAN Miguel SINGLETARY MD DR: AURA/simone JOB#: [id number] / [id number]
[2017-10-04 16:01] VITALS: BP 135/70
--- NOTE | 2017-10-04 19:56 | PDOC ---
Exam Note: Anton Note: Please also refer to the separate dictated note~for this date of service dictated separately.~Patient seen individually. Discussed the patient with Nursing staff reviewed the chart.~Reviewed interim history and current functioning. Reviewed vital signs,~Labs/ Radiology~and current medications noted below. Continue current treatment with the changes noted in the dictated addendum note Assessment: Vital Signs: Vital Signs Date Time Temp Pulse Resp B/P (MAP) Pulse Ox O2 Delivery O2 Flow Rate FiO2 10/04/17 16:01 97.4 89 20 135/70 (91) 95 I&O Intake and Output 10/04/17 07:00 Intake Total 1440 ml Balance 1440 ml Intake Oral 1440 ml # Bowel Movements 1 Labs: Laboratory Tests Test 10/04/17 07:24 10/04/17 08:30 10/04/17 11:07 10/04/17 16:01 Glucose (Fingerstick) 256 mg/dL (70-99) H 357 mg/dL (70-99) H 240 mg/dL (70-99) H White Blood Count 7.1 x10^3/uL (4.0-11.0) Red Blood Count 4.95 x10^6/uL (3.50-5.40) Hemoglobin 13.4 g/dL (12.0-15.5) Hematocrit 41.1 % (36.0-47.0) Mean Corpuscular Volume 83 fL (79-100) Mean Corpuscular Hemoglobin 27 pg (25-35) Mean Corpuscular Hemoglobin Concent 33 g/dL (31-37) Red Cell Distribution Width 14.2 % (11.5-14.5) Platelet Count 238 x10^3/uL (140-400) Neutrophils (%) (Auto) 60 % (31-73) Lymphocytes (%) (Auto) 30 % (24-48) Monocytes (%) (Auto) 9 % (0-9) Eosinophils (%) (Auto) 1 % (0-3) Basophils (%) (Auto) 0 % (0-3) Neutrophils # (Auto) 4.2 x10^3uL (1.8-7.7) Lymphocytes # (Auto) 2.1 x10^3/uL (1.0-4.8) Monocytes # (Auto) 0.6 x10^3/uL (0.0-1.1) Eosinophils # (Auto) 0.1 x10^3/uL (0.0-0.7) Basophils # (Auto) 0.0 x10^3/uL (0.0-0.2) Sodium Level 138 mmol/L (136-145) Potassium Level 4.4 mmol/L (3.5-5.1) Chloride Level 100 mmol/L (98-107) Carbon Dioxide Level 30 mmol/L (21-32) Anion Gap 8 (6-14) Blood Urea Nitrogen 15 mg/dL (7-20) Creatinine 0.9 mg/dL (0.6-1.0) Estimated GFR (Cockcroft-Gault) 60.2 BUN/Creatinine Ratio 17 (6-20) Glucose Level 347 mg/dL (70-99) H Calcium Level 8.9 mg/dL (8.5-10.1) Total Bilirubin 0.4 mg/dL (0.2-1.0) Aspartate Amino Transferase (AST) 33 U/L (15-37) Alanine Aminotransferase (ALT) 50 U/L (14-59) Alkaline Phosphatase 97 U/L (46-116) Total Protein 7.5 g/dL (6.4-8.2) Albumin 3.4 g/dL (3.4-5.0) Albumin/Globulin Ratio 0.8 (1.0-1.7) L Test 10/04/17 19:42 Glucose (Fingerstick) 222 mg/dL (70-99) H Current Medications: Meds: Current Medications Acetaminophen (Tylenol) 650 mg PRN Q6HRS PRN PO PAIN / TEMP; Start 10/02/17 at 16:30; Status Cancel Multi-Ingredient Ointment (Analgesic [place]) 1 kiersten PRN QID PRN TP MUSCLE PAIN; Start 10/02/17 at 16:30 Al Hydroxide/Mg Hydroxide (Mylanta Plus Xs) 15 ml PRN AFTMEALHC PRN PO DYSPEPSIA; Start 10/02/17 at 16:30; Status Cancel Magnesium Hydroxide (Milk Of Magnesia) 2,400 mg PRN QHS PRN PO CONSTIPATION; Start 10/02/17 at 16:30; Status Cancel Acetaminophen (Tylenol) 500 mg PRN Q6HRS PRN PO PAIN / TEMP; Start 10/02/17 at 16:30 Aspirin (James Aspirin) 325 mg DAILY PO Last administered on 10/04/17 08:24; Start 10/03/17 at 09:00 Guaifenesin (Mucinex Er) 600 mg PRN BID PRN PO COUGH; Start 10/02/17 at 16:30 Acetaminophen/ Hydrocodone Bitart (Lortab 5/325) 1 tab PRN Q6HRS PRN PO PAIN Last administered on 10/03/17 07:57; Start 10/02/17 at 16:30 Loperamide HCl (Imodium) 2 mg PRN Q1HR PRN PO DIARRHEA; Start 10/02/17 at 16: 30 Lorazepam (Ativan) 1 mg PRN Q4HRS PRN PO AGITATION; Start 10/02/17 at 16:30 Al Hydroxide/Mg Hydroxide (Mylanta Plus Xs) 20 ml PRN Q4HRS PRN PO DYSPEPSIA; Start 10/02/17 at 16:30 Magnesium Oxide (Magnesium Oxide) 400 mg DAILY PO Last administered on 08:24; Start 10/03/17 at 09:00 Olanzapine (ZyPREXA) 5 mg PRN Q6HRS PRN PO AGITATION; Start 10/02/17 at 16:30 Artificial Tears (Artificial Tears) 1 drop PRN Q12HR PRN OU DRY EYE; Start at 16:30 Temazepam (Restoril) 15 mg PRN QHS PRN PO INSOMNIA; Start 10/02/17 at 16:30 Capsaicin (Zostrix) 1 kiersten PRN Q12HR PRN TP PAIN; Start 10/02/17 at 21:00 Pantoprazole Sodium (Protonix) 40 mg DAILY PO Last administered on 10/04/17 08:24; Start 10/03/17 at 09:00 Magnesium Hydroxide (Milk Of Magnesia) 800 mg PRN QHS PRN PO CONSTIPATION; Start 10/02/17 at 17:00 Multivitamins/ Calcium (Thera-M Plus) 1 tab DAILY PO Last administered on 10/04 08:24; Start 10/03/17 at 09:00 Non-Formulary Medication 1 drop PRN QID PRN EACHEYE DRY EYE; Start 10/02/17 at 16:30; Status UNV Insulin Aspart (NovoLOG) 0-9 UNITS QIDACHS SQ ; Start 10/02/17 at 21:00; Stop 10/03/17 at 00:14; Status DC Dextrose 12.5 gm PRN Q15MIN PRN IV SEE COMMENTS; Start 10/02/17 at 17:00 Amlodipine Besylate (Norvasc) 10 mg DAILY PO Last administered on 10/04/17 08 :24; Start 10/03/17 at 09:00 Atorvastatin Calcium (Lipitor) 20 mg QHS PO ; Start 10/02/17 at 21:00 Donepezil HCl (Aricept) 10 mg QHS PO ; Start 10/02/17 at 21:00; Stop 10/03/17 at 21:58; Status DC Gabapentin (Neurontin) 300 mg BID PO Last administered on 10/04/17 08:24; Start 10/02/17 at 21:00 Glimepiride (Amaryl) 2 mg DAILYWBKFT PO Last administered on 10/04/17 08:24; Start 10/03/17 at 08:00 Sertraline HCl (Zoloft) 75 mg DAILY PO Last administered on 10/04/17 08:24; Start 10/03/17 at 09:00; Stop 10/04/17 at 13:09; Status DC Trazodone HCl (Desyrel) 25 mg QHS PO Last administered on 10/03/17 20:00; Start 10/02/17 at 21:00 Metformin HCl (Glucophage) 1,000 mg BIDWMEALS PO Last administered on 17:00; Start 10/03/17 at 17:30 Non-Formulary Medication 20 mg DAILY PRN PO GERD; Start 10/02/17 at 17:00; Status UNV Risperidone (RisperDAL) 1 mg BID PO Last administered on 10/03/17 07:55; Start 10/02/17 at 21:00; Stop 10/03/17 at 21:58; Status DC Insulin Detemir (Levemir) 40 units QHS SQ Last administered on 10/02/17 21:09 ; Start 10/02/17 at 21:00; Stop 10/03/17 at 16:42; Status DC Insulin Aspart (NovoLOG) 0-9 UNITS TIDAC SQ Last administered on 10/03/17 08: 06; Start 10/03/17 at 07:30; Stop 10/03/17 at 17:07; Status DC Insulin Aspart (NovoLOG) 12 units 1X ONCE SQ Last administered on 10/03/17 14:04; Start 10/03/17 at 12:30; Stop 10/03/17 at 12:31; Status DC Insulin Detemir (Levemir) 40 units BID SQ Last administered on 10/04/17 08:28 ; Start 10/03/17 at 21:00 Insulin Aspart (NovoLOG) 10 units TIDAC SQ Last administered on 10/04/17 16: 30; Start 10/04/17 at 07:30 Risperidone (RisperDAL) 1 mg BIDAFTMEAL PO Last administered on 10/04/17 08: 25; Start 10/04/17 at 09:00; Stop 10/04/17 at 15:30; Status DC Sertraline HCl (Zoloft) 100 mg DAILY PO ; Start 10/05/17 at 09:00 Risperidone (RisperDAL) 1 mg BID PO ; Start 10/04/17 at 21:00 Active Scripts Active Reported Trazodone Hcl 50 Mg Tablet 25 Mg PO QHS Invega (Paliperidone) 3 Mg Tab.er.24 3 Mg PO QHS Aricept (Donepezil Hcl) 10 Mg Tablet 10 Mg PO QHS Atorvastatin Calcium 20 Mg Tablet 20 Mg PO QHS Metformin Hcl 1,000 Mg Tablet 1,000 Mg PO [id number] Gabapentin 300 Mg Capsule 300 Mg PO BID Omeprazole 20 Mg Tablet.dr 20 Mg PO DAILY PRN Glimepiride 2 Mg Tablet 2 Mg PO DAILY Norvasc (Amlodipine Besylate) 10 Mg Tablet 10 Mg PO DAILY Zoloft (Sertraline Hcl) 25 Mg Tablet 75 Mg PO DAILY Temazepam 15 Mg Capsule 1 Cap PO QHS PRN Olanzapine 5 Mg Tablet 1 Tab PO PRN Q6HRS PRN Lorazepam 1 Mg Tablet 1 Mg PO PRN Q4HRS PRN Loperamide (Loperamide Hcl) 2 Mg Capsule 2 Mg PO PRN Q1HR PRN Capsaicin 42.5 Gm Cream..g. 1 Kiersten TP PRN Q12HR PRN Hydrocodone-Apap 5-325 (Hydrocodone Bit/Acetaminophen) 1 Each Tablet 1 Tab PO PRN Q6HRS Multivitamins (Multivitamin) 1 Each Tablet 1 Tab PO DAILY Guaifenesin 600 Mg Tablet.er 600 Mg PO PRN BID PRN Lansoprazole 30 Mg Capsule.dr 1 Cap PO DAILY Acetaminophen 500 Mg Tablet 1 Tab PO Q6HRS PRN Mag-Oxide (Magnesium Oxide) 400 Mg Tablet 400 Mg PO DAILY Systane 0.3-0.4% Eye Drops (Propylene Glycol/Peg 400) 15 Ml Drops 1 Drop EACHEYE PRN QID PRN Levemir (Insulin Detemir) 100 Unit/1 Ml Vial 40 Unit SQ HS Artificial Tears (Polyvinyl Alcohol) 15 Ml Drops 1 Drop OU PRN Q12HR PRN Milk Of Magnesia (Magnesium Hydroxide) 2,400 Mg/10 Ml Oral.susp 10 Ml PO PRN QHS PRN Mag-Al Plus Xs Suspension (Mag Hydrox/Al Hydrox/Simeth) 30 Ml Oral.susp 20 Ml PO PRN Q4HRS PRN Aspirin 325 Mg Tablet 325 Mg PO DAILY Give with food. Not to exceed 8 tablets in 24 hours. I have reviewed the current psychotropics carefully including drug interactions. Risk benefit ratio favors no change other than as noted in my dictated progress note. Diagnosis: Problems: (1) Behavioral disorder (2) Major depressive disorder with psychotic features (3) Paranoid delusion (4) Poorly controlled diabetes mellitus (5) Type II diabetes mellitus (6) Anxiety disorder (7) Type II diabetes mellitus (8) Impulse control disorder (9) Dementia with behavioral disturbance ALEX SINGLETARY MD Oct 04, 2017 19:56
--- NOTE | 2017-10-04 20:58 | PN ---
DATE: 10/03/2017 This late entry 10/03/2017 covers elements not covered in my initial note of 10/03/2017. SUBJECTIVE: I met with the patient evening of 10/03/2017. The patient was transferred to us from [facility] where she was treated for hypomagnesemia from the ER having been referred initially from [facility] on account of increased tearfulness, agitation, delusions, hallucinations, was refusing medications at the group home, throwing things at people, screaming, crying, aggressive and combative. She had failed outpatient psychiatric interventions. She converses mainly in Turkish. REVIEW OF SYSTEMS: No specific CV, , pulmonary, eye, ENT system symptoms on review that I could decipher. Reliability poor. MENTAL STATUS EXAM: Oriented to herself and situation. Speech coherent, rapid at times. Abstraction fair, computation impaired, language function intact, attention span short. Mood and affect remains labile. IMPRESSION: Major depressive disorder, recurrent, rule out psychotic features. Major neurocognitive disorder, Alzheimer, vascular with depression, delusions versus mild cognitive impairment; anxiety disorder, unspecified; impulse control disorder, unspecified. Rest unchanged from admission. PLAN: Continue Zoloft, but increase it to 100 mg a day, continue Aricept 10 mg a day, trazodone 25 mg at bedtime, Restoril 15 mg at bedtime p.r.n., Ativan p.r.n., Zyprexa p.r.n. Consider Depakote as a mood stabilizer if mood vacillations persist. ALEX SINGLETARY MD DR: AURA/simone JOB#: [id number] / [id number]
[2017-10-04] MEDS: traZODone 50 MG TABLET. PO SCH ×2 (21:00→21:04)
[2017-10-04] MEDS: ATORVASTATIN CALCIUM 20 MG TABLET PO SCH ×2 (21:00→21:04)
[2017-10-04] MEDS: risperiDONE ORAL 1 MG/ML 30ml BOTTLE. PO SCH (21:07)
[2017-10-05 00:07] LABS: HEMOGLOBIN A1C 10.6 % (4.8-5.6)
[2017-10-05 06:10] VITALS: BP 156/79
[2017-10-05] MEDS: amLODIPine BESYLATE 10 MG TABLET PO SCH ×2 (07:56→09:00)
[2017-10-05] MEDS: GLIMEPIRIDE 2 MG TABLET PO SCH ×2 (07:56→11:42)
[2017-10-05] MEDS: MAGNESIUM OXIDE 400 MG TABLET PO SCH (07:56)
[2017-10-05] MEDS: ASPIRIN 325 MG TABLET PO SCH (07:56)
[2017-10-05] MEDS: metFORMIN 500 MG TABLET PO SCH ×4 (07:56→17:42)
[2017-10-05] MEDS: GABAPENTIN 300 MG CAPSULE. PO SCH ×3 (07:57→19:44)
[2017-10-05] MEDS: PANTOPRAZOLE 40 MG TABLET. PO SCH ×2 (07:57→09:00)
[2017-10-05] MEDS: MULTIVITAMIN with MINERAL TABLET. PO SCH (07:57)
[2017-10-05] MEDS: INSULIN ASPART 300 UNITS/3 ML INSULN.PEN SQ SCH ×3 (07:59→17:44)
[2017-10-05] MEDS: INSULIN DETEMIR 300 UNITS/3 ML INSULN.PEN. SQ SCH ×2 (08:01→19:47)
[2017-10-05] MEDS: risperiDONE ORAL 1 MG/ML 30ml BOTTLE. PO SCH ×2 (08:04→19:45)
[2017-10-05] MEDS: SERTRALINE 100 MG TABLET. PO SCH ×2 (08:04→11:42)
[2017-10-05 15:53] VITALS: BP 175/69
[2017-10-05] MEDS: traZODone 50 MG TABLET. PO SCH (19:44)
[2017-10-05] MEDS: ATORVASTATIN CALCIUM 20 MG TABLET PO SCH (19:44)
--- NOTE | 2017-10-05 20:08 | PDOC ---
Exam Note: Anton Note: Please also refer to the separate dictated note~for this date of service dictated separately.~Patient seen individually. Discussed the patient with Nursing staff reviewed the chart.~Reviewed interim history and current functioning. Reviewed vital signs,~Labs/ Radiology~and current medications noted below. Continue current treatment with the changes noted in the dictated addendum note Assessment: Vital Signs: Vital Signs Date Time Temp Pulse Resp B/P (MAP) Pulse Ox O2 Delivery O2 Flow Rate FiO2 10/05/17 15:53 98.4 83 18 175/69 (104) 94 I&O Intake and Output 10/05/17 07:00 Intake Total 1080 ml Balance 1080 ml Intake Oral 1080 ml # Voids 1 Labs: Laboratory Tests Test 10/05/17 07:42 10/05/17 11:46 10/05/17 16:53 10/05/17 19:04 Glucose (Fingerstick) 208 mg/dL (70-99) H 268 mg/dL (70-99) H 142 mg/dL (70-99) H 237 mg/dL (70-99) H Current Medications: Meds: Current Medications Acetaminophen (Tylenol) 650 mg PRN Q6HRS PRN PO PAIN / TEMP; Start 10/02/17 at 16:30; Status Cancel Multi-Ingredient Ointment (Analgesic Healy) 1 kiersten PRN QID PRN TP MUSCLE PAIN; Start 10/02/17 at 16:30 Al Hydroxide/Mg Hydroxide (Mylanta Plus Xs) 15 ml PRN AFTMEALHC PRN PO DYSPEPSIA; Start 10/02/17 at 16:30; Status Cancel Magnesium Hydroxide (Milk Of Magnesia) 2,400 mg PRN QHS PRN PO CONSTIPATION; Start 10/02/17 at 16:30; Status Cancel Acetaminophen (Tylenol) 500 mg PRN Q6HRS PRN PO PAIN / TEMP; Start 10/02/17 at 16:30 Aspirin (James Aspirin) 325 mg DAILY PO Last administered on 10/05/17t 07:56; Start 10/03/17 at 09:00 Guaifenesin (Mucinex Er) 600 mg PRN BID PRN PO COUGH; Start 10/02/17 at 16:30 Acetaminophen/ Hydrocodone Bitart (Lortab 5/325) 1 tab PRN Q6HRS PRN PO PAIN Last administered on 10/03/17 07:57; Start 10/02/17 at 16:30 Loperamide HCl (Imodium) 2 mg PRN Q1HR PRN PO DIARRHEA; Start 10/02/17 at 16: 30 Lorazepam (Ativan) 1 mg PRN Q4HRS PRN PO AGITATION; Start 10/02/17 at 16:30 Al Hydroxide/Mg Hydroxide (Mylanta Plus Xs) 20 ml PRN Q4HRS PRN PO DYSPEPSIA; Start 10/02/17 at 16:30 Magnesium Oxide (Magnesium Oxide) 400 mg DAILY PO Last administered on 07:56; Start 10/03/17 at 09:00 Olanzapine (ZyPREXA) 5 mg PRN Q6HRS PRN PO AGITATION; Start 10/02/17 at 16:30 Artificial Tears (Artificial Tears) 1 drop PRN Q12HR PRN OU DRY EYE; Start at 16:30 Temazepam (Restoril) 15 mg PRN QHS PRN PO INSOMNIA; Start 10/02/17 at 16:30 Capsaicin (Zostrix) 1 kiersten PRN Q12HR PRN TP PAIN; Start 10/02/17 at 21:00 Pantoprazole Sodium (Protonix) 40 mg DAILY PO Last administered on 10/04/17 08:24; Start 10/03/17 at 09:00 Magnesium Hydroxide (Milk Of Magnesia) 800 mg PRN QHS PRN PO CONSTIPATION; Start 10/02/17 at 17:00 Multivitamins/ Calcium (Thera-M Plus) 1 tab DAILY PO Last administered on 10/05 07:57; Start 10/03/17 at 09:00 Non-Formulary Medication 1 drop PRN QID PRN EACHEYE DRY EYE; Start 10/02/17 at 16:30; Status UNV Insulin Aspart (NovoLOG) 0-9 UNITS QIDACHS SQ ; Start 10/02/17 at 21:00; Stop 10/03/17 at 00:14; Status DC Dextrose 12.5 gm PRN Q15MIN PRN IV SEE COMMENTS; Start 10/02/17 at 17:00 Amlodipine Besylate (Norvasc) 10 mg DAILY PO Last administered on 10/04/17 08 :24; Start 10/03/17 at 09:00 Atorvastatin Calcium (Lipitor) 20 mg QHS PO Last administered on 10/05/17 19: 44; Start 10/02/17 at 21:00 Donepezil HCl (Aricept) 10 mg QHS PO ; Start 10/02/17 at 21:00; Stop 10/03/17 at 21:58; Status DC Gabapentin (Neurontin) 300 mg BID PO Last administered on 10/05/17 19:44; Start 10/02/17 at 21:00 Glimepiride (Amaryl) 2 mg DAILYWBKFT PO Last administered on 10/05/17 11:42; Start 10/03/17 at 08:00 Sertraline HCl (Zoloft) 75 mg DAILY PO Last administered on 10/04/17 08:24; Start 10/03/17 at 09:00; Stop 10/04/17 at 13:09; Status DC Trazodone HCl (Desyrel) 25 mg QHS PO Last administered on 10/05/17 19:44; Start 10/02/17 at 21:00 Metformin HCl (Glucophage) 1,000 mg BIDWMEALS PO Last administered on 17:00; Start 10/03/17 at 17:30 Non-Formulary Medication 20 mg DAILY PRN PO GERD; Start 10/02/17 at 17:00; Status UNV Risperidone (RisperDAL) 1 mg BID PO Last administered on 10/03/17 07:55; Start 10/02/17 at 21:00; Stop 10/03/17 at 21:58; Status DC Insulin Detemir (Levemir) 40 units QHS SQ Last administered on 10/02/17 21:09 ; Start 10/02/17 at 21:00; Stop 10/03/17 at 16:42; Status DC Insulin Aspart (NovoLOG) 0-9 UNITS TIDAC SQ Last administered on 10/03/17 08: 06; Start 10/03/17 at 07:30; Stop 10/03/17 at 17:07; Status DC Insulin Aspart (NovoLOG) 12 units 1X ONCE SQ Last administered on 10/03/17 14:04; Start 10/03/17 at 12:30; Stop 10/03/17 at 12:31; Status DC Insulin Detemir (Levemir) 40 units BID SQ Last administered on 10/05/17 19:47 ; Start 10/03/17 at 21:00 Insulin Aspart (NovoLOG) 10 units TIDAC SQ Last administered on 10/05/17 17: 44; Start 10/04/17 at 07:30 Risperidone (RisperDAL) 1 mg BIDAFTMEAL PO Last administered on 10/04/17 08: 25; Start 10/04/17 at 09:00; Stop 10/04/17 at 15:30; Status DC Sertraline HCl (Zoloft) 100 mg DAILY PO Last administered on 10/05/17 11:42; Start 10/05/17 at 09:00 Risperidone (RisperDAL) 1 mg BID PO Last administered on 10/05/17 19:45; Start 10/04/17 at 21:00 Active Scripts Active Reported Trazodone Hcl 50 Mg Tablet 25 Mg PO QHS Invega (Paliperidone) 3 Mg Tab.er.24 3 Mg PO QHS Aricept (Donepezil Hcl) 10 Mg Tablet 10 Mg PO QHS Atorvastatin Calcium 20 Mg Tablet 20 Mg PO QHS Metformin Hcl 1,000 Mg Tablet 1,000 Mg PO BID94 Gabapentin 300 Mg Capsule 300 Mg PO BID Omeprazole 20 Mg Tablet.dr 20 Mg PO DAILY PRN Glimepiride 2 Mg Tablet 2 Mg PO DAILY Norvasc (Amlodipine Besylate) 10 Mg Tablet 10 Mg PO DAILY Zoloft (Sertraline Hcl) 25 Mg Tablet 75 Mg PO DAILY Temazepam 15 Mg Capsule 1 Cap PO QHS PRN Olanzapine 5 Mg Tablet 1 Tab PO PRN Q6HRS PRN Lorazepam 1 Mg Tablet 1 Mg PO PRN Q4HRS PRN Loperamide (Loperamide Hcl) 2 Mg Capsule 2 Mg PO PRN Q1HR PRN Capsaicin 42.5 Gm Cream..g. 1 Kiersten TP PRN Q12HR PRN Hydrocodone-Apap 5-325 (Hydrocodone Bit/Acetaminophen) 1 Each Tablet 1 Tab PO PRN Q6HRS Multivitamins (Multivitamin) 1 Each Tablet 1 Tab PO DAILY Guaifenesin 600 Mg Tablet.er 600 Mg PO PRN BID PRN Lansoprazole 30 Mg Capsule.dr 1 Cap PO DAILY Acetaminophen 500 Mg Tablet 1 Tab PO Q6HRS PRN Mag-Oxide (Magnesium Oxide) 400 Mg Tablet 400 Mg PO DAILY Systane 0.3-0.4% Eye Drops (Propylene Glycol/Peg 400) 15 Ml Drops 1 Drop EACHEYE PRN QID PRN Levemir (Insulin Detemir) 100 Unit/1 Ml Vial 40 Unit SQ HS Artificial Tears (Polyvinyl Alcohol) 15 Ml Drops 1 Drop OU PRN Q12HR PRN Milk Of Magnesia (Magnesium Hydroxide) 2,400 Mg/10 Ml Oral.susp 10 Ml PO PRN QHS PRN Mag-Al Plus Xs Suspension (Mag Hydrox/Al Hydrox/Simeth) 30 Ml Oral.susp 20 Ml PO PRN Q4HRS PRN Aspirin 325 Mg Tablet 325 Mg PO DAILY Give with food. Not to exceed 8 tablets in 24 hours. I have reviewed the current psychotropics carefully including drug interactions. Risk benefit ratio favors no change other than as noted in my dictated progress note. Diagnosis: Problems: (1) Behavioral disorder (2) Major depressive disorder with psychotic features (3) Paranoid delusion (4) Poorly controlled diabetes mellitus (5) Type II diabetes mellitus (6) Anxiety disorder (7) Type II diabetes mellitus (8) Impulse control disorder (9) Dementia with behavioral disturbance ALEX SINGLETARY MD Oct 05, 2017 20:08
[2017-10-05] MEDS ORDERED: INSU100I17 SQ (22:53)
[2017-10-05] MEDS ORDERED: METH29OI TP (22:58)
[2017-10-05] MEDS ORDERED: PANT40TA5 PO (23:01)
[2017-10-05] MEDS ORDERED: PALI3TAB2 PO (23:02)
[2017-10-05] MEDS ORDERED: RISP1TAB43 PO (23:05)
--- NOTE | 2017-10-06 03:49 | PN ---
DATE: 10/04/2017 This late entry for 10/04/2017 covers elements not covered in my initial note of 10/04/2017. SUBJECTIVE: I met with the patient at great length in the evening of 10/04/2017 through an hand mexican food maker who was extremely helpful in communicating with the patient. The hand mexican food maker was on the telephone. The patient was communicating with the hand mexican food maker in Hungarian. The patient described at length how she feels her daughter had her sign the DPOA papers which she believes she was signing just for a DNR status. She believes her other daughter, Magalys is more supportive of the patient and wants her to be more involved in the patient's care. The patient prefers to go live in an apartment close to Magalys in [place], [place]. All this information will be passed on to the social service staff, and at the time of this dictation, I have discussed all this with the social service staff as well. The patient left the telephone number for Magalys as [phone]. I did ask for some orientation questions. She was unable to do serial sevens, was unsure of the date, though she knew it was 2016, knew she had been here since the . In fact, she was admitted on the . She has been refusing some of her psychotropics, has vague somatic symptoms. REVIEW OF SYSTEMS: No CV, , pulmonary, eye system symptoms on review. MENTAL STATUS EXAM: Oriented to herself and situation. Speech coherent, rapid at times. Abstraction fair, computation impaired, language function intact. Attention span short. Information from social service staff revealed how repeatedly she appeared psychotic at the long term, believes police were trying to find her, if she saw a car outside would get quite erratic, labile. senior living had arranged interpreters to help with communication with some relief. Takes her meds hidden in juice. Blood sugar was somewhat elevated. No active suicidal or homicidal ideation. Attention span short. Language function intact. Mood and affect somewhat anxious, labile. LABORATORY DATA: Reviewed. IMPRESSION: Major depressive disorder versus mood disorder, unspecified; cognitive disorder, unspecified versus major neurocognitive disorder, Alzheimer, vascular with depression, delusions, impulse control disorder, unspecified. Rest unchanged. PLAN: Continue current psychotropics mentioned in my initial note. Further disposition plans have been discussed with Latanya, social service staff. ALEX SINGLETARY MD DR: AURA/simone JOB#: [id number] / [id number]
[2017-10-06 06:13] VITALS: BP 153/73
[2017-10-06] MEDS: GLIMEPIRIDE 2 MG TABLET PO SCH ×2 (08:00→09:39)
[2017-10-06] MEDS: metFORMIN 500 MG TABLET PO SCH ×2 (08:00→09:38)
[2017-10-06] MEDS: SERTRALINE 100 MG TABLET. PO SCH ×2 (09:00→09:38)
[2017-10-06] MEDS: risperiDONE ORAL 1 MG/ML 30ml BOTTLE. PO SCH (09:00)
[2017-10-06] MEDS: GABAPENTIN 300 MG CAPSULE. PO SCH (09:00)
[2017-10-06] MEDS: amLODIPine BESYLATE 10 MG TABLET PO SCH ×2 (09:00→09:38)
[2017-10-06] MEDS: MULTIVITAMIN with MINERAL TABLET. PO SCH (09:00)
[2017-10-06] MEDS: PANTOPRAZOLE 40 MG TABLET. PO SCH (09:00)
[2017-10-06] MEDS: INSULIN ASPART 300 UNITS/3 ML INSULN.PEN SQ SCH (09:36)
[2017-10-06] MEDS: INSULIN DETEMIR 300 UNITS/3 ML INSULN.PEN. SQ SCH (09:37)
[2017-10-06] MEDS: MAGNESIUM OXIDE 400 MG TABLET PO SCH (09:39)
[2017-10-06] MEDS: ASPIRIN 325 MG TABLET PO SCH (09:39)
--- NOTE | 2017-10-07 05:05 | PN ---
DATE: 10/05/2017 This late entry, date of service, 10/05/2017 covers elements not covered in my initial note 10/05/2017. I met with the patient in the evening of 10/05/2017. The patient is noncompliant with medications, takes some things selectively, took Risperdal with apple juice and intermittently takes the aspirin, magnesium, multivitamin. REVIEW OF SYSTEMS: No CV, , pulmonary, eye system symptoms on review. Reliability poor. MENTAL STATUS EXAM: Oriented to herself and situation. Speech coherent, rapid preferentially in Kyrgyz. Abstraction fair, computation impaired, language function intact, attention span short. Mood and affect still somewhat anxious, but less labile. LABORATORY DATA: Reviewed. IMPRESSION: Unchanged from initial note and she is less demented than she initially appeared on the surface; major depressive disorder, recurrent; anxiety disorder, unspecified; mood disorder, unspecified; mild cognitive impairment versus major neurocognitive disorder; early Alzheimer, vascular with delusion; depression. PLAN: Continue current psychotropics as mentioned in my initial note, encourage compliance. Discussed with social service staff. [facility] in the next day or two. MAN Miguel SINGLETARY MD DR: AURA/simone JOB#: [id number] / [id number]
--- NOTE | 2017-10-07 18:36 | PDOC ---
Exam Note: Anton Note: Please also refer to the separate dictated note~for this date of service dictated separately.~Patient seen individually. Discussed the patient with Nursing staff reviewed the chart.~Reviewed interim history and current functioning. Reviewed vital signs,~Labs/ Radiology~and current medications noted below. Continue current treatment with the changes noted in the dictated addendum note Assessment: Vital Signs: Vital Signs Date Time Temp Pulse Resp B/P (MAP) Pulse Ox O2 Delivery O2 Flow Rate FiO2 10/06/17 06:13 97.2 87 18 153/73 (99) 95 I&O Intake and Output 10/07/17 07:00 Intake Total 240 ml Balance 240 ml Intake Oral 240 ml Current Medications: Meds: Current Medications Acetaminophen (Tylenol) 650 mg PRN Q6HRS PRN PO PAIN / TEMP; Start 10/02/17 at 16:30; Status Cancel Multi-Ingredient Ointment (Analgesic Rydal) 1 kiersten PRN QID PRN TP MUSCLE PAIN; Start 10/02/17 at 16:30; Stop 10/06/17 at 11:13; Status DC Al Hydroxide/Mg Hydroxide (Mylanta Plus Xs) 15 ml PRN AFTMEALHC PRN PO DYSPEPSIA; Start 10/02/17 at 16:30; Status Cancel Magnesium Hydroxide (Milk Of Magnesia) 2,400 mg PRN QHS PRN PO CONSTIPATION; Start 10/02/17 at 16:30; Status Cancel Acetaminophen (Tylenol) 500 mg PRN Q6HRS PRN PO PAIN / TEMP; Start 10/02/17 at 16:30; Stop 10/06/17 at 11:13; Status DC Aspirin (James Aspirin) 325 mg DAILY PO Last administered on 10/06/17 09:39; Start 10/03/17 at 09:00; Stop 10/06/17 at 11:13; Status DC Guaifenesin (Mucinex Er) 600 mg PRN BID PRN PO COUGH; Start 10/02/17 at 16:30 ; Stop 10/06/17 at 11:13; Status DC Acetaminophen/ Hydrocodone Bitart (Lortab 5/325) 1 tab PRN Q6HRS PRN PO PAIN Last administered on 10/03/17 07:57; Start 10/02/17 at 16:30; Stop 10/06/17 at 11:13; Status DC Loperamide HCl (Imodium) 2 mg PRN Q1HR PRN PO DIARRHEA; Start 10/02/17 at 16: 30; Stop 10/06/17 at 11:13; Status DC Lorazepam (Ativan) 1 mg PRN Q4HRS PRN PO AGITATION; Start 10/02/17 at 16:30; Stop 10/06/17 at 11:13; Status DC Al Hydroxide/Mg Hydroxide (Mylanta Plus Xs) 20 ml PRN Q4HRS PRN PO DYSPEPSIA; Start 10/02/17 at 16:30; Stop 10/06/17 at 11:13; Status DC Magnesium Oxide (Magnesium Oxide) 400 mg DAILY PO Last administered on 09:39; Start 10/03/17 at 09:00; Stop 10/06/17 at 11:13; Status DC Olanzapine (ZyPREXA) 5 mg PRN Q6HRS PRN PO AGITATION; Start 10/02/17 at 16:30 ; Stop 10/06/17 at 11:13; Status DC Artificial Tears (Artificial Tears) 1 drop PRN Q12HR PRN OU DRY EYE; Start at 16:30; Stop 10/06/17 at 11:13; Status DC Temazepam (Restoril) 15 mg PRN QHS PRN PO INSOMNIA; Start 10/02/17 at 16:30; Stop 10/06/17 at 11:13; Status DC Capsaicin (Zostrix) 1 kiersten PRN Q12HR PRN TP PAIN; Start 10/02/17 at 21:00; Stop 10/06/17 at 11:13; Status DC Pantoprazole Sodium (Protonix) 40 mg DAILY PO Last administered on 10/04/17 08:24; Start 10/03/17 at 09:00; Stop 10/06/17 at 11:13; Status DC Magnesium Hydroxide (Milk Of Magnesia) 800 mg PRN QHS PRN PO CONSTIPATION; Start 10/02/17 at 17:00; Stop 10/06/17 at 11:13; Status DC Multivitamins/ Calcium (Thera-M Plus) 1 tab DAILY PO Last administered on 10/05 07:57; Start 10/03/17 at 09:00; Stop 10/06/17 at 11:13; Status DC Non-Formulary Medication 1 drop PRN QID PRN EACHEYE DRY EYE; Start 10/02/17 at 16:30; Status UNV Insulin Aspart (NovoLOG) 0-9 UNITS QIDACHS SQ ; Start 10/02/17 at 21:00; Stop 10/03/17 at 00:14; Status DC Dextrose 12.5 gm PRN Q15MIN PRN IV SEE COMMENTS; Start 10/02/17 at 17:00; Stop 10/06/17 at 11:13; Status DC Amlodipine Besylate (Norvasc) 10 mg DAILY PO Last administered on 10/04/17 08 :24; Start 10/03/17 at 09:00; Stop 10/06/17 at 11:13; Status DC Atorvastatin Calcium (Lipitor) 20 mg QHS PO Last administered on 10/05/17 19: 44; Start 10/02/17 at 21:00; Stop 10/06/17 at 11:13; Status DC Donepezil HCl (Aricept) 10 mg QHS PO ; Start 10/02/17 at 21:00; Stop 10/03/17 at 21:58; Status DC Gabapentin (Neurontin) 300 mg BID PO Last administered on 10/05/17 19:44; Start 10/02/17 at 21:00; Stop 10/06/17 at 11:13; Status DC Glimepiride (Amaryl) 2 mg DAILYWBKFT PO Last administered on 10/05/17 11:42; Start 10/03/17 at 08:00; Stop 10/06/17 at 11:13; Status DC Sertraline HCl (Zoloft) 75 mg DAILY PO Last administered on 10/04/17 08:24; Start 10/03/17 at 09:00; Stop 10/04/17 at 13:09; Status DC Trazodone HCl (Desyrel) 25 mg QHS PO Last administered on 10/05/17 19:44; Start 10/02/17 at 21:00; Stop 10/06/17 at 11:13; Status DC Metformin HCl (Glucophage) 1,000 mg BIDWMEALS PO Last administered on 17:00; Start 10/03/17 at 17:30; Stop 10/06/17 at 11:13; Status DC Non-Formulary Medication 20 mg DAILY PRN PO GERD; Start 10/02/17 at 17:00; Status UNV Risperidone (RisperDAL) 1 mg BID PO Last administered on 10/03/17 07:55; Start 10/02/17 at 21:00; Stop 10/03/17 at 21:58; Status DC Insulin Detemir (Levemir) 40 units QHS SQ Last administered on 10/02/17 21:09 ; Start 10/02/17 at 21:00; Stop 10/03/17 at 16:42; Status DC Insulin Aspart (NovoLOG) 0-9 UNITS TIDAC SQ Last administered on 10/03/17 08: 06; Start 10/03/17 at 07:30; Stop 10/03/17 at 17:07; Status DC Insulin Aspart (NovoLOG) 12 units 1X ONCE SQ Last administered on 10/03/17 14:04; Start 10/03/17 at 12:30; Stop 10/03/17 at 12:31; Status DC Insulin Detemir (Levemir) 40 units BID SQ Last administered on 10/06/17 09:37 ; Start 10/03/17 at 21:00; Stop 10/06/17 at 11:13; Status DC Insulin Aspart (NovoLOG) 10 units TIDAC SQ Last administered on 10/06/17 09: 36; Start 10/04/17 at 07:30; Stop 10/06/17 at 11:13; Status DC Risperidone (RisperDAL) 1 mg BIDAFTMEAL PO Last administered on 10/04/17 08: 25; Start 10/04/17 at 09:00; Stop 10/04/17 at 15:30; Status DC Sertraline HCl (Zoloft) 100 mg DAILY PO Last administered on 10/05/17 11:42; Start 10/05/17 at 09:00; Stop 10/06/17 at 11:13; Status DC Risperidone (RisperDAL) 1 mg BID PO Last administered on 10/05/17 19:45; Start 10/04/17 at 21:00; Stop 10/06/17 at 11:13; Status DC Active Scripts Active Reported Risperdal (Risperidone) 1 Mg Tablet 1 Mg PO BID Pantoprazole Sodium 40 Mg Tablet.dr 40 Mg PO DAILY Analgesic Rydal (Methyl Salicylate/Menthol) 28 Gm Oint...g. 1 Kiersten TP PRN QID PRN Novolog Flexpen (Insulin Aspart) 100 Unit/1 Ml Insuln.pen 12 Units SQ TIDAC Trazodone Hcl 50 Mg Tablet 25 Mg PO QHS Atorvastatin Calcium 20 Mg Tablet 20 Mg PO QHS Metformin Hcl 1,000 Mg Tablet 1,000 Mg PO BIDWMEALS Gabapentin 300 Mg Capsule 300 Mg PO BID Glimepiride 2 Mg Tablet 2 Mg PO DAILYWBKFT Norvasc (Amlodipine Besylate) 10 Mg Tablet 10 Mg PO DAILY Zoloft (Sertraline Hcl) 25 Mg Tablet 100 Mg PO DAILY Olanzapine 5 Mg Tablet 1 Tab PO PRN Q6HRS PRN Lorazepam 1 Mg Tablet 1 Mg PO PRN Q4HRS PRN Loperamide (Loperamide Hcl) 2 Mg Capsule 2 Mg PO PRN Q1HR PRN Capsaicin 42.5 Gm Cream..g. 1 Kiersten TP PRN Q12HR PRN Hydrocodone-Apap 5-325 (Hydrocodone Bit/Acetaminophen) 1 Each Tablet 1 Tab PO PRN Q6HRS MDD 4000mg Multivitamins (Multivitamin) 1 Each Tablet 1 Tab PO DAILY Guaifenesin 600 Mg Tablet.er 600 Mg PO PRN BID PRN Acetaminophen 500 Mg Tablet 1 Tab PO Q6HRS PRN MDD 4000mg Mag-Oxide (Magnesium Oxide) 400 Mg Tablet 400 Mg PO DAILY Levemir (Insulin Detemir) 100 Unit/1 Ml Vial 42 Unit SQ BID Artificial Tears (Polyvinyl Alcohol) 15 Ml Drops 1 Drop OU PRN Q12HR PRN Milk Of Magnesia (Magnesium Hydroxide) 2,400 Mg/10 Ml Oral.susp 10 Ml PO PRN QHS PRN Mag-Al Plus Xs Suspension (Mag Hydrox/Al Hydrox/Simeth) 30 Ml Oral.susp 20 Ml PO PRN Q4HRS PRN Aspirin 325 Mg Tablet 325 Mg PO DAILY Give with food. Not to exceed 8 tablets in 24 hours. I have reviewed the current psychotropics carefully including drug interactions. Risk benefit ratio favors no change other than as noted in my dictated progress note. Diagnosis: Problems: (1) Dementia with behavioral disturbance (2) Impulse control disorder (3) Type II diabetes mellitus (4) Anxiety disorder (5) Type II diabetes mellitus (6) Paranoid delusion (7) Major depressive disorder with psychotic features ALEX SINGLETARY MD Oct 07, 2017 18:36
--- NOTE | 2017-10-07 22:15 | DS ---
DATE OF DISCHARGE: 10/06/2017 DISCHARGE SUMMARY/PSYCHIATRIC PROGRESS NOTE This late entry for 10/06/2017 covers elements not covered in my initial note of 10/06/2017. REASON FOR ADMISSION: Please refer to the admission history for details. Briefly, the patient is an 81-year-old female referred back to us from [facility] by her primary care physician on account of increasing agitation, being delusional, hallucinating, confused and tearful. She was quite disruptive at the nursing facility. Behaviors were unmanageable. She had failed outpatient psychiatric interventions resulting in this referral. SIGNIFICANT FINDINGS AND CLINICAL COURSE: Following admission, the patient was seen daily individually by myself, followed medically per Dr. Moser/Dr. Mendez. Communication was a big problem since she only communicated in Chinese and we got hand nailer for me to be able to communicate with her. She is intermittently noncompliant with medications, was convinced that her daughter who had the DPOA sign for her had done it in deceit. Social service staff to check into all of this and felt all the documentation was appropriate. Other than above, the patient was not having any aggressive, disruptive behaviors and was tolerating her psychotropics prior to discharge. CONDITION AT DISCHARGE: Improved. REVIEW OF SYSTEMS: No CV, , pulmonary, eye, ENT system symptoms on review. MENTAL STATUS EXAM: Oriented to herself and situation. Speech coherent, rapid at times. Abstraction fair, computation impaired, language function intact, attention span short. Mood and affect still somewhat anxious, but less psychotic. No suicidal or homicidal ideation prior to discharge. FINAL DIAGNOSES: Major depressive disorder with psychotic features; anxiety disorder, unspecified; impulse control disorder, unspecified; major neurocognitive disorder, early Alzheimer, vascular with depression, history of delusions, rest unchanged from admission. DISCHARGE MEDICATIONS: Please refer to the EMRAD. DISCHARGE INSTRUCTIONS: Outpatient psychiatric and medical followup at the snf. Time for discharge day management greater than 30 minutes. ALEX SINGLETARY MD DR: AURA/simone JOB#: [id number] / [id number]
== END 2017-10-06 11:00 | disposition home or self-care (01) | DRG 885 ==
LOC: GEROPSY 15:49
PROVIDERS: ADMIT Psychiatry & Neurology Psychiatry; ATTEND Psychiatry & Neurology Psychiatry
DX: F31.5 Bipolar disorder, current episode depressed, severe, with psychotic features (principal); E11.22 Type 2 diabetes mellitus with diabetic chronic kidney disease; E11.65 Type 2 diabetes mellitus with hyperglycemia; F01.51 Vascular dementia, unspecified severity, with behavioral disturbance; F02.81 Dementia in other diseases classified elsewhere, unspecified severity, with behavioral disturbance; I13.0 Hypertensive heart and chronic kidney disease with heart failure and stage 1 through stage 4 chronic kidney disease, or unspecified chronic kidney disease; I50.9 Heart failure, unspecified; E78.5 Hyperlipidemia, unspecified; E83.42 Hypomagnesemia; F09 Unspecified mental disorder due to known physiological condition; F41.9 Anxiety disorder, unspecified; F63.9 Impulse disorder, unspecified; G30.9 Alzheimer's disease, unspecified; I25.10 Atherosclerotic heart disease of native coronary artery without angina pectoris; K21.9 Gastro-esophageal reflux disease without esophagitis; N18.9 Chronic kidney disease, unspecified; Z66 Do not resuscitate; Z91.14 Patient's other noncompliance with medication regimen; Z88.8 Allergy status to other drugs, medicaments and biological substances
CPT/HCPCS: 36415; 80053; 80061; 82306; 82607; 82947; 83036; 83540; 83550; 84436; 84443; 84480; 85025; 86592; 86593; J1815

== ENCOUNTER 2018-03-17 04:14 | Emergency (ER) | payer OTHER, MEDICARE ==
[~2018-03-17] VITALS: Ht 160 cm; Wt 81.4 kg
[~2018-03-17 04:14] MED LIST changes: +AMLO10TA4 PO; +DONE10TA61 PO; -FERR-26 PO; +FERR325T14 PO; +GLIM2TAB2 PO; +INSU100I17 SQ; -METF10002 PO; +METF10003 PO; +OMEP20TA8 PO; +PALI3TAB2 PO; +PANT40TA5 PO; +RISP1TAB43 PO; +SERT25TA PO
--- NOTE | 2018-03-17 05:25 | PHYS DOC ---
Past History Past Medical History: Dementia, Depression, Diabetes, GERD, High Cholesterol, Hypertension, Other Past Surgical History: Coronary Bypass Surgery Alcohol Use: None Drug Use: None Adult General Chief Complaint Chief Complaint: PSYCH EVALUATION HPI HPI Patient is a 82 year old female who presents to the emergency department by ambulance transport for reported altered mental status. The patient is a resident at [facility] in [place], [place]. The patient was brought to the emergency department as this facility was looking to have the patient admitted for psychiatric evaluation. The ambulance service reports that the patient escaped from the custodial after she had told staff repeatedly that she felt that she had a urinary tract infection and she was trying to walk to a local emergency department on her own. The patient was evaluated at [facility] and was diagnosed with urinary tract infection. The custodial requested that [facility] pursue psychiatric admission for the patient due to her change in behavior. Initial information was sent to the [facility] health unit, however authorization by the patient's DP away was never received. When the patient was brought back to the custodial, she reportedly became very agitated as she was placed in a different room from where she was originally staying. The patient thus was sent here to the emergency department for psychiatric evaluation and to consider placement. The patient is ambulatory and denies any major complaints at this time. The patient states that she had been very upset because her room had been changed but she did express regret at her behavior. Patient has reported history of diabetes mellitus. The patient's blood sugar was found to be elevated initially above 400 at her visit at [facility], however this was corrected to the mid 300s. . Review of Systems Review of Systems Constitutional: Denies fever or chills [] Eyes: Denies change in visual acuity, redness, or eye pain [] HENT: Denies nasal congestion or sore throat [] Respiratory: Denies cough or shortness of breath [] Cardiovascular: Denies chest pain or edema[] GI: Nausea, lower abdominal discomfort, denies vomiting, bloody stools or diarrhea [] : Dysuria[] Musculoskeletal: Denies back pain or joint pain [] Integument: Denies rash or skin lesions [] Neurologic: Denies headache, focal weakness or sensory changes [] All other systems were reviewed and found to be within normal limits, except as documented in this note. Allergies Allergies Allergies Coded Allergies Type Severity Reaction Last Updated Verified hydrochlorothiazide Allergy Intermediate 08/13/15 Yes Physical Exam Physical Exam Constitutional: Alert, afebrile, cooperative on exam, tearful. [] HENT: Normocephalic, atraumatic, bilateral external ears normal, oropharynx moist, no oral exudates, nose normal. [] Eyes: PERRLA, EOMI, conjunctiva normal, no discharge. [] Neck: Normal range of motion, no tenderness, supple, no stridor. [] Cardiovascular:Heart rate regular rhythm, no murmur [] Lungs & Thorax: Bilateral breath sounds clear to auscultation [] Abdomen: Bowel sounds normal, soft, no tenderness, no masses, no pulsatile masses. [] Skin: Warm, dry, no erythema, no rash. [] Back: No tenderness, no CVA tenderness. [] Extremities: No tenderness, no cyanosis, no clubbing, ROM intact, no edema. [] Neurologic: Alert and oriented X 3, normal motor function, normal sensory function, no focal deficits noted. [] Psychologic: Affect normal, judgement normal, mood labile. [] Current Patient Data Vital Signs Vital Signs Date Time Temp Pulse Resp B/P (MAP) Pulse Ox O2 Delivery O2 Flow Rate FiO2 03/17/18 04:14 98.2 98 22 97 Room Air Lab Results No new labs performed EKG EKG Not performed[] Radiology/Procedures Radiology/Procedures Not performed[] Course & Med Decision Making Course & Med Decision Making Pertinent Labs and Imaging studies reviewed. (See chart for details) The patient is in stable condition at this time. Attempts were made to contact the patient's DPOA without success. The sister of the patient's DPOA was contacted and will attempt to contact the DPOA in order to authorize admission of the patient to the [facility] health unit here at [facility]. Care patient signed out to Dr. Jensen at 0600. Patient care transferred to pr at 0600 for psych placement. Pt did not have blood test in this ER and her BS from another facility was more than 400.labs was ordered, accucheck was >400 and pt treated with Insulin IV but b/o hi BNP IV was not given, BS gradually decreased to 320. Patient had insurance problem and was not able to get admission at [facility] and discharged to memory loss custodial at 1405. Dragon Disclaimer Dragon Disclaimer This electronic medical record was generated, in whole or in part, using a voice recognition dictation system. Departure Departure: Impression: Primary Impression: Dementia with behavioral disturbance Additional Impressions: Type II diabetes mellitus Hyperglycemia Uncontrolled diabetes mellitus Disposition: 01 HOME, SELF-CARE (nursin home) Condition: IMPROVED Referrals: QUINTEN CARLSON [facility], MD (PCP) Patient Instructions: Hyperglycemia Problem Qualifiers Primary Impression: Dementia with behavioral disturbance Dementia type: unspecified type Qualified Codes: F03.91 - Unspecified dementia with behavioral disturbance Additional Impressions: Type II diabetes mellitus Diabetes mellitus roasterman insulin use: unspecified roasterman insulin use status Diabetes mellitus complication status: with hyperglycemia Qualified Codes: E11.65 - Type 2 diabetes mellitus with hyperglycemia CAMILLA GARNER MD March 17, 2018 05:25 DAVID JENSEN MD March 17, 2018 15:56
[2018-03-17] MEDS ORDERED: GABA-585 PO (06:32)
[2018-03-17] MEDS ORDERED: AMLO5TAB2 PO (06:32)
[2018-03-17] MEDS ORDERED: FERR325T14 PO (06:42)
[2018-03-17] MEDS ORDERED: CYCL1DRO EACHEYE (06:42)
[2018-03-17] MEDS ORDERED: LANS15TA6 PO (06:42)
[2018-03-17] MEDS ORDERED: DOCU240C13 PO (06:42)
[2018-03-17] MEDS ORDERED: IBUP400T18 PO (06:42)
[2018-03-17] MEDS ORDERED: DONE10TA7 PO (06:42)
[2018-03-17] MEDS ORDERED: POLY17PO5 PO (06:42)
[2018-03-17] MEDS ORDERED: GLUC1VIA3 IM (06:42)
[2018-03-17] MEDS ORDERED: GABA-586 PO (06:42)
[2018-03-17] MEDS ORDERED: DEXT1CAP PO (06:42)
[2018-03-17] MEDS ORDERED: TEMA15CA PO (06:42)
[2018-03-17] MEDS ORDERED: LISI-334 PO (06:42)
[2018-03-17] MEDS ORDERED: MELA3TAB2 PO (06:42)
[2018-03-17] MEDS ORDERED: INSULIN REGULAR 100 UNIT/ML 10ML VIAL. IV ONE ×3 (07:15→10:00)
[2018-03-17] MEDS ORDERED: IV NORMAL SALINE 1,000ML 1,000 ML IV ONE (07:15)
[2018-03-17 07:46] LABS: BASO % 1 % (0-3); EOS % 0 % (0-3); HEMATOCRIT 46.6 % (36.0-47.0); HEMOGLOBIN 15.2 g/dL (12.0-15.5); LYMPH # 1.5 x10^3/uL (1.0-4.8); LYMPH % 16 % (24-48); MEAN CORPUSCULAR HEMOGLOBIN 28 pg (25-35); MEAN CORPUSCULAR HGB CONC 33 g/dL (31-37); MEAN CORPUSCULAR VOLUME 86 fL (79-100); MONO # 0.5 x10^3/uL (0.0-1.1); MONO % 6 % (0-9); NEUT # 7.3 x10^3uL (1.8-7.7); NEUT % 77 % (31-73); PLATELET COUNT 260 x10^3/uL (140-400); RED BLOOD COUNT 5.45 x10^6/uL (3.50-5.40); RED CELL DISTRIBUTION WIDTH 14.1 % (11.5-14.5); WHITE BLOOD COUNT 9.5 x10^3/uL (4.0-11.0)
[2018-03-17 07:55] LABS: ALBUMIN 3.7 g/dL (3.4-5.0); ALBUMIN/GLOBULIN RATIO 0.9 (1.0-1.7); CALCIUM 8.9 mg/dL (8.5-10.1); CREATININE 0.9 mg/dL (0.6-1.0); GFR 60.1; MAGNESIUM 1.6 mg/dL (1.8-2.4); POTASSIUM 3.9 mmol/L (3.5-5.1); TOTAL BILIRUBIN 0.7 mg/dL (0.2-1.0)
[2018-03-17 08:09] LABS: CLARITY,URINE CLEAR; COLOR,URINE YELLOW
[2018-03-17 08:10] LABS: BACTERIA,URINE 0 /HPF (0-FEW); BILIRUBIN,URINE NEG (NEG); GLUCOSE,URINE >=1000 mg/dL (NEG); NITRITE,URINE NEG (NEG); RBC,URINE 0 /HPF (0-2); SQUAMOUS EPITHELIAL CELL,UR OCC /LPF; UROBILINOGEN,URINE 0.2 mg/dL (0.2 mg/dL)
--- NOTE | 2018-03-17 10:16 | EKG ---
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
[2018-03-17 11:37] VITALS: BP 144/75
== END 2018-03-17 14:11 | disposition home or self-care (01) ==
LOC: ER 04:14
DX: F03.91 Unspecified dementia, unspecified severity, with behavioral disturbance (principal); E11.65 Type 2 diabetes mellitus with hyperglycemia; E78.00 Pure hypercholesterolemia, unspecified; K21.9 Gastro-esophageal reflux disease without esophagitis; I10 Essential (primary) hypertension; F32.9 Major depressive disorder, single episode, unspecified; Z95.1 Presence of aortocoronary bypass graft; Z88.8 Allergy status to other drugs, medicaments and biological substances
CPT/HCPCS: 36415; 80053; 81001; 82947; 83735; 83880; 85025; 93005; 96361; 96374; 96376; 99285; J1815; J7030